=== PATIENT | male | born 1960 | race African-American/Black ===

== ENCOUNTER 2016-07-18 13:23 | Emergency (ER) | payer OTHER ==
[2016-07-18 13:29] VITALS: BP 126/69; PULSE 119; TEMP 98.1; BMI 33.4
--- NOTE | 2016-07-18 14:57 | PDOC ---
*Physical Exam - Vital Signs Last Vital Signs Temp Pulse Resp BP Pulse Ox 98.1 F 119 H 20 126/69 95 07/18/16 13:25 07/18/16 13:25 07/18/16 13:25 07/18/16 13:25 07/18/16 13:25 Medical Decision Making - Medical Decision Making 07/18/16 14:56 Called to bedside to evaluate pt for multiple skin abscesses. He has one to the mons pubis, one to the L inner thigh, both can be I&D'd. Also noted to have small chronic abscess to L buttock that appears chronic. Will defer, as it is not indurated and not tense or tender. *DC/Admit/Observation/Transfer Diagnosis at time of Disposition: Furuncle of buttock, Furuncle of groin - Discharge Dispostion Disposition: HOME Condition at time of disposition: Stable - Prescriptions Prescriptions: Clindamycin [Cleocin -] 300 mg PO Q6HPO #40 capsule Ibuprofen 400 mg PO QID PRN #40 tablet PRN Reason: Pain Hydrocortisone [Preparation H] 1 applic TP QID PRN #1 tube PRN Reason: Hemorrhoids Budesonide/Formeterol Fumarate [SYMBICORT 160/4.5mcg -] 1 inh PO BID #1 inhaler - Referrals Referrals: Armando Woods MD [Staff Physician] - Nicolle Matt MD [Staff Physician] - - Patient Instructions Printed Discharge Instructions: Hemorrhoids, DI for Anal Abscess, DI for Incision and Drainage of a Skin Abscess Additional Instructions: Please keep the area of drainage clean and dry for the next 24-48 hours. As discussed, you must follow up in 2 days for a wound recheck and/or packing removal. You must establish care with a primary care doctor for continued management of your asthma, diabetes, high blood pressure, high cholesterol, bipolar disorder, and schizophrenia. Also as discussed, if you experience any fever, chills, nausea, vomiting, diarrhea, chest pain, shortness of breath, or any new or worsening symptoms, please return to the ER.
--- NOTE | 2016-07-18 15:05 | PDOC ---
History of Present Illness - General Chief Complaint: Abscess Boil Stated Complaint: LEG PAIN Time Seen by Provider: 07/18/16 14:00 - History of Present Illness Initial Comments: 07/18/16 14:54 CHIEF COMPLAINT: HISTORY OF PRESENT ILLNESS: 56 yo M with hx of HTN, NIDDM, HLD, bipolar disorder, schizophrenia, ETOH abuse presents to fast track with abscess to right groin, right buttock, and L inner thigh. Patient reports having them for "over a week" and was given Bactrim by a doctor in rehab, from which he was discharged today. Denies fever, nausea, vomiting, diarrhea, but complains of hemorrhoids and requests medication. PAST MEDICAL HISTORY: as per HPI FAMILY HISTORY: Denies SOCIAL HISTORY: Current smoker, 30 cigarettes daily. ETOH abuse. Denies illicit drug use. SURGICAL HISTORY: Denies ALLERGIES: No known drug allergies REVIEW OF SYSTEMS General/Constitutional: Denies fever or chills. Denies weakness, weight change. HEENT: Denies change in vision. Denies ear pain or discharge. Denies sore throat. Cardiovascular: Denies chest pain or shortness of breath. Respiratory: Denies cough, wheezing, or hemoptysis. Gastrointestinal: Denies nausea, vomiting, diarrhea or constipation. Denies rectal bleeding. Genitourinary: Denies dysuria, frequency, or change in urination. Musculoskeletal: Denies joint or muscle swelling or pain. Denies neck or back pain. Skin and breasts: Abscess to right groin, buttock and inner thigh. Denies rash or easy bruising. PHYSICAL EXAM General Appearance: Well-appearing, appropriately dressed. No apparent distress , no intoxication. HEENT: EOMI, PERRLA, normal ENT inspection, normal voice, TMs normal, pharynx normal. No conjunctival pallor. No photophobia, scleral icterus. Neck: Supple. Trachea midline. No tenderness, rigidity, carotid bruit, stridor , lymphadenopathy, or thyromegaly. Respiratory/Chest: Lungs CTAB. No shortness of breath, chest tenderness, respiratory distress, accessory muscle use. No crackles, rales, rhonchi, stridor , wheezing, dullness Cardiovascular: RRR. S1, S2. Gastrointestinal/Abdominal: Normal bowel sounds. Abdomen soft, non-distended. No tenderness or rebound tenderness. No organomegaly, pulsatile mass, guarding , hernia, hepatomegaly, splenomegaly. Lymphatic: No adenopathy, tenderness. Musculoskeletal/Extremities: Normal inspection. FROM of all extremities, normal capillary refill. Pelvis Stable. No CVA tenderness. No tenderness to extremities, pedal edema, swelling, erythema or deformity. Integumentary: 2 cm x 2 cm fluctuant abscess to right mons pubis. 2 cm x 2 cm chronic abscess to right buttock. 1cm x 1 cm non-fluctuant abscess to L thigh. Appropriate color, dry, warm. Neurologic: emblem fuser tender II-XII intact. Fully oriented, alert. Appropriate mood/affect. Motor strength 5/5. No appreciable EOM palsy, facial droop or sensory deficit. Past History - Past Medical History Allergies/Adverse Reactions: Allergies Allergy/AdvReac Type Severity Reaction Status Date / Time No Known Drug Allergies Allergy Verified 07/18/16 13:29 Home Medications: Ambulatory Orders Trazodone HCl 100 mg PO HS #30 tablet 08/06/15 Quetiapine Fumarate [Seroquel] 200 tab PO BID #60 tablet 08/11/15 Fluticasone Prop 0.05% Nasal [Flonase -] 1 spray NS BID #1 spray 09/02/15 Hydrochlorothiazide [Hctz -] 25 mg PO DAILY #30 tablet 09/02/15 Folic Acid - 1 mg PO DAILY 07/13/16 Gabapentin [Neurontin -] 300 mg PO TID 07/13/16 Metformin HCl [Glucophage -] 1,000 mg PO BID 07/13/16 Polyethylene Glycol 3350 [Purelax] 17 gm PO DAILY 07/13/16 Triamcinolone Acet 0.1% Cream [Aristocort] 80 gm TP DAILY 07/13/16 Gabapentin 300 mg PO TID #90 capsule 07/14/16 Quetiapine Fumarate [Seroquel -] 200 mg PO BID #60 tab 07/14/16 Trazodone HCl [Desyrel -] 100 mg PO HS #30 tablet 07/14/16 Amlodipine Besylate [Norvasc -] 10 mg PO DAILY #30 tablet 07/18/16 Aspirin [ASA -] 81 mg PO DAILY #30 tab.chew 07/18/16 Budesonide/Formeterol Fumarate [SYMBICORT 160/4.5mcg -] 1 inh PO BID #1 inhaler 07/18/16 Clindamycin [Cleocin -] 300 mg PO Q6HPO #40 capsule 07/18/16 Docusate Sodium [Colace -] 100 mg PO TID #30 tab 07/18/16 Hydrocortisone [Preparation H] 1 applic TP QID PRN #1 tube 07/18/16 Ibuprofen 400 mg PO QID PRN #40 tablet 07/18/16 Lisinopril [Prinivil] 10 mg PO DAILY #30 tab 07/18/16 Metformin HCl [Glucophage -] 500 mg PO BID@0700,1630 #60 tablet 07/18/16 Rosuvastatin Calcium [Crestor] 20 mg PO HS #30 tab 07/18/16 Sulfamethoxazole/Trimethoprim [Bactrim DS -] 1 each PO BID #10 tablet 07/18/16 Anemia: No Asthma: Yes (MDI) Cancer: No Cardiac Disorders: No CVA: No COPD: No CHF: No Dementia: No Diabetes: Yes (NIDDM) GI Disorders: No (acid reflux) Disorders: No HTN: Yes (ON MED) Hypercholesterolemia: Yes Kidney Stones: No Liver Disease: No Suicide Attempt (Hx): No (DENIES "ONLY WITH THE LIQUOR BOTTLE".) Seizures: Yes (alcohol related-last episode was in 12/2015) Thyroid Disease: No - Surgical History Abdominal Surgery: No Appendectomy: Yes (at age 13) Cardiac Surgery: No Cholecystectomy: No Lung Surgery: No Neurologic Surgery: No Orthopedic Surgery: Yes - Reproductive History Testicular Surgery: No - Psycho/Social/Smoking Cessation Hx Anxiety: Yes Suicidal Ideation: No Smoking History: Current every day smoker Have you smoked in the past 12 months: Yes Number of Cigarettes Smoked Daily: 30 Cigars Per Day: 0 Information on smoking cessation initiated: No 'Breaking Loose' booklet given: 07/13/16 Hx Alcohol Use: Yes (daily) Drug/Substance Use Hx: No Substance Use Type: Alcohol Hx Substance Use Treatment: Yes ([facility]) *Physical Exam - Vital Signs Last Vital Signs Temp Pulse Resp BP Pulse Ox 98.1 F 119 H 20 126/69 95 07/18/16 13:25 07/18/16 13:25 07/18/16 13:25 07/18/16 13:25 07/18/16 13:25 ED Treatment Course - RADIOLOGY Radiology Studies Ordered: Category Date Time Status PELVIS CT WITHOUT CONTRAST [CT] Stat CT Scan 07/18/16 14:39 Ordered Medical Decision Making - Medical Decision Making 07/18/16 15:05 56 yo M with hx of HTN, NIDDM, HLD, bipolar disorder, schizophrenia, ETOH abuse presents to fast track with abscess to right groin, right buttock, and right inner thigh. -I&D of abscess to right mons pubis. (see procedure note). -Needle aspiration to R inner thigh, no drainage appreciated. Other abscesses with no fluctuance. External hemorrhoids. Preparation H. *DC/Admit/Observation/Transfer Diagnosis at time of Disposition: Furuncle of buttock, Furuncle of groin - Discharge Dispostion Disposition: HOME Condition at time of disposition: Stable Admit: No - Prescriptions Prescriptions: Clindamycin [Cleocin -] 300 mg PO Q6HPO #40 capsule Ibuprofen 400 mg PO QID PRN #40 tablet PRN Reason: Pain Hydrocortisone [Preparation H] 1 applic TP QID PRN #1 tube PRN Reason: Hemorrhoids Budesonide/Formeterol Fumarate [SYMBICORT 160/4.5mcg -] 1 inh PO BID #1 inhaler - Referrals Referrals: Armando Woods MD [Staff Physician] - Nicolle Matt MD [Staff Physician] - - Patient Instructions Printed Discharge Instructions: DI for Incision and Drainage of a Skin Abscess , DI for Anal Abscess, Hemorrhoids Additional Instructions: Please keep the area of drainage clean and dry for the next 24-48 hours. As discussed, you must follow up in 2 days for a wound recheck and/or packing removal. You must establish care with a primary care doctor for continued management of your asthma, diabetes, high blood pressure, high cholesterol, bipolar disorder, and schizophrenia. Also as discussed, if you experience any fever, chills, nausea, vomiting, diarrhea, chest pain, shortness of breath, or any new or worsening symptoms, please return to the ER.
[2016-07-18] MEDS ORDERED: ALBUTEROL SO4 2.5/IPRATROPIUM 0.5 INH SOL 3 ML VIAL.NEB. NEB ONE ×2 (15:38→15:41)
== END 2016-07-18 16:06 | disposition home or self-care (01) ==
LOC: JERFT 13:23 → JER 13:23 → JERFT 16:06
PROC: 0H9AXZZ Drainage of Inguinal Skin, External Approach (ICD-10-PCS; principal; 2016-07-18)
PROC: 0H9JXZZ Drainage of Left Upper Leg Skin, External Approach (ICD-10-PCS; 2016-07-18)
PROC: 3E0F7GC Introduction of Other Therapeutic Substance into Respiratory Tract, Via Natural or Artificial Opening (ICD-10-PCS; 2016-07-18)
DX: L02.224 Furuncle of groin (principal); L02.32 Furuncle of buttock; L02.426 Furuncle of left lower limb; I10 Essential (primary) hypertension; E11.9 Type 2 diabetes mellitus without complications; E78.5 Hyperlipidemia, unspecified; F31.9 Bipolar disorder, unspecified; F20.9 Schizophrenia, unspecified; F10.10 Alcohol abuse, uncomplicated; F17.210 Nicotine dependence, cigarettes, uncomplicated; J45.909 Unspecified asthma, uncomplicated; K21.9 Gastro-esophageal reflux disease without esophagitis; Z86.69 Personal history of other diseases of the nervous system and sense organs; K64.4 Residual hemorrhoidal skin tags
CPT/HCPCS: 72192-TC; 87070; 87205; 99281-25

== ENCOUNTER 2016-07-19 08:19 | Inpatient (IN) | payer OTHER ==
[2016-07-19 12:42] VITALS: BMI 34.9
--- NOTE | 2016-07-19 13:18 | HP ---
RENNY FREED Rehab Assess/Revision - Vital signs Vital Signs: Vital Signs Period Temp Pulse Resp BP Sys/Fleming Pulse Ox Last 24 Hr 96 F 100 18 140/86
--- NOTE | 2016-07-19 13:47 | HP ---
RENNY FREED Rehab Assess/Revision - Admission History Admitted to Rehab from: [facility] [place] Date of Admission to Rehab: 07/19/16 - Vital signs Vital Signs: Vital Signs Period Temp Pulse Resp BP Sys/Fleming Pulse Ox Last 24 Hr 96 F 100 18 140/86 - Findings Detox History & Physical reviewed: Yes Concur with findings: Yes Comments/Additional Findings: for rehab as protocol,patient was admitted to [facility] detox from 07/13/16 to. 07/18/16
[2016-07-19] MEDS ORDERED: LOPERAMIDE HCL 2 MG CAPSULE PO PRN (13:48)
[2016-07-19] MEDS ORDERED: MAGNESIUM CITRATE 300 ML BOTTLE PO PRN (13:48)
[2016-07-19] MEDS ORDERED: MAGNESIUM HYDROX 2400MG/30ML ORAL SUSPENSION 30 ML CUP PO PRN (13:48)
[2016-07-19] MEDS ORDERED: P-EPHED 60MG/TRIPROLIDI 2.5MG TABLET PO PRN (13:48)
[2016-07-19] MEDS ORDERED: hydrOXYzine PAMOATE 50 MG CAPSULE (FP) PO PRN (13:48)
--- NOTE | 2016-07-19 15:35 | HP ---
Psychiatrist Admission - Data Date of interview: 07/19/16 Admission source: [facility] Identifying data: This is one of the several inpatient rehabilitation admissions for this 56 year old single unemployed and domiciled black male, residing with his c/l and his 3 year old daughter, supported by SSI/SSD. Medical History: Obesity, DM, HTN and right prosthetic eye (congenital retinopathy) since age 16, history of appendectomy and cervical surgery in 2006. Furuncle of groin, Smokes cigarettes 1,5 PPD. Psychiatric History: Patient carries a diagnosis of Schizoaffective disorder, several psychiatric hospitalizations at [facility]. Non-compliant with medications and aftercare, reports most of the time he obtains his medications visiting ERs, stated he currently on Seroquel 200 po BID and Trazodone 100 mg po hs. Physical/Sexual Abuse/Trauma History: Denies history of sexual, physical and verbal abuse. Vital Signs: Vital Signs - 24 hr 07/19/16 12:40 Temperature 96 F L Pulse Rate 100 H Respiratory 18 Rate Blood Pressure 140/86 Allergies/Adverse Reactions: Allergies Allergy/AdvReac Type Severity Reaction Status Date / Time No Known Drug Allergies Allergy Verified 07/19/16 13:23 Date of last physical exam: 07/14/16 Concur with the findings of this exam: Yes - Substance Abuse/Tx History Hx Alcohol Use: Yes Hx Substance Use: Yes Substance Use Type: Alcohol (drinks 2 cases of beer, wine, liquor.) Hx Substance Use Treatment: Yes - Admission Criteria Previous failed treatment: Yes Poor recovery environment: Yes Comorbidities: Yes Lacks judgement: Yes Mental Status Exam - Mental Status Exam Alert and Oriented to: Time, Place, Person Cognitive Function: Good Patient Appearance: Well Groomed Mood: Hopeful Affect: Appropriate, Mood Congruent Patient Behavior: Appropriate, Cooperative Speech Pattern: Clear, Appropriate Voice Loudness: Normal Thought Process: Goal Oriented Thought Disorder: Not Present Hallucinations: Denies Suicidal Ideation: Denies Homicidal Ideation: Denies Insight/Judgement: Fair Sleep: Fair Appetite: Good Muscle strength/Tone: Normal Gait/Station: Normal Psychiatric Findings - Problem List ([place] 1, 2,3) (1) Furuncle of groin Current Visit: No Status: Acute (2) Nicotine dependence Current Visit: No Status: Acute Qualifiers: Nicotine product type: cigarettes Substance use status: in withdrawal Qualified Code(s): F17.213 - Nicotine dependence, cigarettes, with withdrawal (3) Schizoaffective disorder Current Visit: No Status: Chronic Qualifiers: Schizoaffective disorder type: depressive Qualified Code(s): F25.1 - Schizoaffective disorder, depressive type - Initial Treatment Plan Initial Treatment Plan: will continue his current medications, monitor progress as needed.
[2016-07-19] MEDS: NICOTINE 21 MG/24 HOURS TOPICAL PATCH TD SCH (15:37)
[2016-07-19] MEDS: IBUPROFEN 400 MG TABLET (FP) PO PRN (15:37)
[2016-07-19] MEDS: DOCUSATE SODIUM 100 MG CAPSULE (FP) PO SCH ×2 (15:37→21:29)
[2016-07-19] MEDS: GABAPENTIN 300 MG CAPSULE (FP) PO SCH ×2 (15:37→21:29)
[2016-07-19] MEDS: metFORMIN HCL 500 MG TABLET (FP) PO SCH (17:11)
[2016-07-19] MEDS: CLINDAMYCIN HCL 150 MG CAPSULE (FP) PO SCH ×2 (17:12→23:00)
[2016-07-19] MEDS: ACETAMINOPHEN 325 MG TABLET (FP) PO PRN (20:35)
[2016-07-19] MEDS: ROSUVASTATIN CA 20 MG TABLET (FP) PO SCH (21:29)
[2016-07-19] MEDS: THIAMINE HCL 100 MG TABLET (FP) PO SCH (21:29)
[2016-07-19] MEDS: traZODone HCL 100 MG TABLET (FP) PO SCH (21:31)
[2016-07-19] MEDS: QUEtiapine FUMARATE 100 MG TABLET (FP) PO SCH (21:32)
[2016-07-19] MEDS: FLUTICASONE PROP 0.05% 16 GM NASAL SPRAY NS SCH (21:33)
[2016-07-19] MEDS: BUDESONIDE/FORMETEROL FUMARATE 160/4.5 mcg INHALER IH SCH (22:11)
[2016-07-20] MEDS: ACETAMINOPHEN 325 MG TABLET (FP) PO PRN ×3 (03:43→23:09)
[2016-07-20] MEDS: MENTHOL/PHENOL 1 EACH UD MM PRN ×2 (03:45→23:10)
[2016-07-20] MEDS: CLINDAMYCIN HCL 150 MG CAPSULE (FP) PO SCH ×4 (06:19→23:54)
[2016-07-20] MEDS: GABAPENTIN 300 MG CAPSULE (FP) PO SCH ×3 (06:19→21:34)
[2016-07-20] MEDS: DOCUSATE SODIUM 100 MG CAPSULE (FP) PO SCH ×3 (06:19→21:34)
[2016-07-20] MEDS: metFORMIN HCL 500 MG TABLET (FP) PO SCH ×2 (06:19→17:05)
[2016-07-20] MEDS: amLODIPine BESYLATE 10 MG TABLET (FP) PO SCH (09:05)
[2016-07-20] MEDS: ASPIRIN 81 MG CHEWABLE TABLETS PO SCH (09:05)
[2016-07-20] MEDS: FLUTICASONE PROP 0.05% 16 GM NASAL SPRAY NS SCH ×2 (09:08→21:35)
[2016-07-20] MEDS: PRENATAL VITAMINS W/ FOLIC ACID TABLET (FP) PO SCH (09:09)
[2016-07-20] MEDS: BUDESONIDE/FORMETEROL FUMARATE 160/4.5 mcg INHALER IH SCH ×2 (09:10→21:34)
[2016-07-20] MEDS: QUEtiapine FUMARATE 100 MG TABLET (FP) PO SCH ×2 (09:15→21:34)
[2016-07-20] MEDS: NICOTINE 21 MG/24 HOURS TOPICAL PATCH TD SCH (09:17)
[2016-07-20] MEDS: LISINOPRIL 10 MG TABLET (FP) PO SCH (09:49)
[2016-07-20] MEDS ORDERED: TRIAMCINOLONE ACET 0.1% TP SCH (10:00)
[2016-07-20] MEDS ORDERED: PNEUMOC 13-VAL CONJ-DIP CRM/PF 0.5 ML DISP.SYRIN IM ONE (12:00)
[2016-07-20] MEDS: TRIAMCINOLONE ACET 0.1% TP SCH (21:36)
[2016-07-20] MEDS: THIAMINE HCL 100 MG TABLET (FP) PO SCH (21:36)
[2016-07-20] MEDS: HYDROCORTISONE 2.5% TOPICAL CREAM 30 GM TUBE TP SCH (21:37)
[2016-07-20] MEDS: traZODone HCL 100 MG TABLET (FP) PO SCH (21:38)
[2016-07-20] MEDS: ROSUVASTATIN CA 20 MG TABLET (FP) PO SCH (21:38)
[2016-07-21] MEDS: GABAPENTIN 300 MG CAPSULE (FP) PO SCH ×3 (06:34→21:37)
[2016-07-21] MEDS: metFORMIN HCL 500 MG TABLET (FP) PO SCH ×2 (06:34→17:07)
[2016-07-21] MEDS: DOCUSATE SODIUM 100 MG CAPSULE (FP) PO SCH ×3 (06:35→21:36)
[2016-07-21] MEDS: CLINDAMYCIN HCL 150 MG CAPSULE (FP) PO SCH ×4 (06:35→23:23)
[2016-07-21] MEDS: BUDESONIDE/FORMETEROL FUMARATE 160/4.5 mcg INHALER IH SCH ×2 (09:06→21:36)
[2016-07-21] MEDS: TRIAMCINOLONE ACET 0.1% TP SCH ×2 (09:06→21:36)
[2016-07-21] MEDS: ASPIRIN 81 MG CHEWABLE TABLETS PO SCH (09:06)
[2016-07-21] MEDS: PRENATAL VITAMINS W/ FOLIC ACID TABLET (FP) PO SCH (09:06)
[2016-07-21] MEDS: amLODIPine BESYLATE 10 MG TABLET (FP) PO SCH (09:06)
[2016-07-21] MEDS: QUEtiapine FUMARATE 100 MG TABLET (FP) PO SCH ×2 (09:06→21:36)
[2016-07-21] MEDS: LISINOPRIL 10 MG TABLET (FP) PO SCH (09:07)
[2016-07-21] MEDS: FLUTICASONE PROP 0.05% 16 GM NASAL SPRAY NS SCH ×2 (09:07→21:35)
[2016-07-21] MEDS: NICOTINE 21 MG/24 HOURS TOPICAL PATCH TD SCH (09:09)
[2016-07-21] MEDS: HYDROCORTISONE 2.5% TOPICAL CREAM 30 GM TUBE TP SCH ×2 (09:10→21:36)
[2016-07-21] MEDS: ACETAMINOPHEN 325 MG TABLET (FP) PO PRN (14:22)
[2016-07-21] MEDS: ROSUVASTATIN CA 20 MG TABLET (FP) PO SCH (21:36)
[2016-07-21] MEDS: THIAMINE HCL 100 MG TABLET (FP) PO SCH (21:36)
[2016-07-21] MEDS: BACITRACIN 0.9 GM PACKET TP SCH (21:37)
[2016-07-21] MEDS: traZODone HCL 100 MG TABLET (FP) PO SCH (21:37)
[2016-07-22] MEDS: metFORMIN HCL 500 MG TABLET (FP) PO SCH ×2 (06:17→17:04)
[2016-07-22] MEDS: DOCUSATE SODIUM 100 MG CAPSULE (FP) PO SCH ×3 (06:17→21:43)
[2016-07-22] MEDS: CLINDAMYCIN HCL 150 MG CAPSULE (FP) PO SCH ×4 (06:17→23:02)
[2016-07-22] MEDS: GABAPENTIN 300 MG CAPSULE (FP) PO SCH ×3 (06:17→21:43)
[2016-07-22] MEDS: ASPIRIN 81 MG CHEWABLE TABLETS PO SCH (09:59)
[2016-07-22] MEDS: PRENATAL VITAMINS W/ FOLIC ACID TABLET (FP) PO SCH (09:59)
[2016-07-22] MEDS: amLODIPine BESYLATE 10 MG TABLET (FP) PO SCH (09:59)
[2016-07-22] MEDS: LISINOPRIL 10 MG TABLET (FP) PO SCH (09:59)
[2016-07-22] MEDS: QUEtiapine FUMARATE 100 MG TABLET (FP) PO SCH ×2 (09:59→21:43)
[2016-07-22] MEDS: BUDESONIDE/FORMETEROL FUMARATE 160/4.5 mcg INHALER IH SCH ×2 (09:59→21:42)
[2016-07-22] MEDS: HYDROCORTISONE 2.5% TOPICAL CREAM 30 GM TUBE TP SCH ×2 (09:59→21:42)
[2016-07-22] MEDS: TRIAMCINOLONE ACET 0.1% TP SCH ×2 (10:01→21:43)
[2016-07-22] MEDS: FLUTICASONE PROP 0.05% 16 GM NASAL SPRAY NS SCH ×2 (10:02→21:42)
[2016-07-22] MEDS: NICOTINE 21 MG/24 HOURS TOPICAL PATCH TD SCH (10:02)
[2016-07-22] MEDS: BACITRACIN 0.9 GM PACKET TP SCH ×2 (10:05→21:42)
[2016-07-22] MEDS: ROSUVASTATIN CA 20 MG TABLET (FP) PO SCH (21:43)
[2016-07-22] MEDS: THIAMINE HCL 100 MG TABLET (FP) PO SCH (21:43)
[2016-07-22] MEDS: traZODone HCL 100 MG TABLET (FP) PO SCH (21:43)
[2016-07-22] MEDS: MAG HYDROX/AL HYDROX/SIMETH 30 ML UNIT-DOSE CUP PO PRN (23:14)
[2016-07-23] MEDS: CLINDAMYCIN HCL 150 MG CAPSULE (FP) PO SCH ×4 (06:26→23:27)
[2016-07-23] MEDS: metFORMIN HCL 500 MG TABLET (FP) PO SCH ×2 (06:26→17:04)
[2016-07-23] MEDS: GABAPENTIN 300 MG CAPSULE (FP) PO SCH ×3 (06:26→21:37)
[2016-07-23] MEDS: DOCUSATE SODIUM 100 MG CAPSULE (FP) PO SCH ×3 (06:26→21:37)
[2016-07-23] MEDS: BACITRACIN 0.9 GM PACKET TP SCH ×2 (09:54→21:37)
[2016-07-23] MEDS: BUDESONIDE/FORMETEROL FUMARATE 160/4.5 mcg INHALER IH SCH ×2 (09:54→21:36)
[2016-07-23] MEDS: QUEtiapine FUMARATE 100 MG TABLET (FP) PO SCH ×2 (09:55→21:37)
[2016-07-23] MEDS: ASPIRIN 81 MG CHEWABLE TABLETS PO SCH (09:55)
[2016-07-23] MEDS: LISINOPRIL 10 MG TABLET (FP) PO SCH (09:55)
[2016-07-23] MEDS: HYDROCORTISONE 2.5% TOPICAL CREAM 30 GM TUBE TP SCH ×2 (09:55→21:36)
[2016-07-23] MEDS: amLODIPine BESYLATE 10 MG TABLET (FP) PO SCH (09:55)
[2016-07-23] MEDS: FLUTICASONE PROP 0.05% 16 GM NASAL SPRAY NS SCH ×2 (09:56→21:36)
[2016-07-23] MEDS: PRENATAL VITAMINS W/ FOLIC ACID TABLET (FP) PO SCH (09:56)
[2016-07-23] MEDS: NICOTINE 21 MG/24 HOURS TOPICAL PATCH TD SCH (09:57)
[2016-07-23] MEDS: TRIAMCINOLONE ACET 0.1% TP SCH ×2 (09:58→21:36)
[2016-07-23] MEDS: guaiFENesin/D-METHORPHAN HB 10 ML UNIT-DOSE CUPS PO PRN ×2 (12:00→21:39)
[2016-07-23] MEDS ORDERED: ALBUTEROL SO4 2.5/IPRATROPIUM 0.5 INH SOL 3 ML VIAL.NEB. NEB PRN (15:51)
[2016-07-23] MEDS: ALBUTEROL SO4 6.7 GM HFA INHALER IH PRN (16:14)
[2016-07-23] MEDS ORDERED: INSULIN SLIDING SCALE (NOVOLOG) 1 VIAL SQ SCH (16:30)
[2016-07-23] MEDS: INSULIN SLIDING SCALE (NOVOLOG) 1 VIAL SQ SCH (17:04)
[2016-07-23] MEDS ORDERED: INSULIN (NOVOLOG) ASPART 100 UNITS/ML 10ML VIAL ONE (17:05)
[2016-07-23] MEDS: traZODone HCL 100 MG TABLET (FP) PO SCH (21:37)
[2016-07-23] MEDS: THIAMINE HCL 100 MG TABLET (FP) PO SCH (21:37)
[2016-07-23] MEDS: ROSUVASTATIN CA 20 MG TABLET (FP) PO SCH (21:38)
[2016-07-24] MEDS: DOCUSATE SODIUM 100 MG CAPSULE (FP) PO SCH ×3 (05:55→21:02)
[2016-07-24] MEDS: GABAPENTIN 300 MG CAPSULE (FP) PO SCH ×3 (05:55→21:02)
[2016-07-24] MEDS: CLINDAMYCIN HCL 150 MG CAPSULE (FP) PO SCH ×4 (05:55→23:19)
[2016-07-24] MEDS: INSULIN SLIDING SCALE (NOVOLOG) 1 VIAL SQ SCH ×2 (06:02→16:30)
[2016-07-24] MEDS: metFORMIN HCL 500 MG TABLET (FP) PO SCH ×2 (06:38→16:31)
[2016-07-24] MEDS: BUDESONIDE/FORMETEROL FUMARATE 160/4.5 mcg INHALER IH SCH ×2 (09:53→21:06)
[2016-07-24] MEDS: LISINOPRIL 10 MG TABLET (FP) PO SCH (09:54)
[2016-07-24] MEDS: PRENATAL VITAMINS W/ FOLIC ACID TABLET (FP) PO SCH (09:54)
[2016-07-24] MEDS: amLODIPine BESYLATE 10 MG TABLET (FP) PO SCH (09:54)
[2016-07-24] MEDS: QUEtiapine FUMARATE 100 MG TABLET (FP) PO SCH ×2 (09:54→21:02)
[2016-07-24] MEDS: ASPIRIN 81 MG CHEWABLE TABLETS PO SCH (09:54)
[2016-07-24] MEDS: BACITRACIN 0.9 GM PACKET TP SCH ×2 (09:54→21:02)
[2016-07-24] MEDS: FLUTICASONE PROP 0.05% 16 GM NASAL SPRAY NS SCH ×2 (09:56→21:06)
[2016-07-24] MEDS: HYDROCORTISONE 2.5% TOPICAL CREAM 30 GM TUBE TP SCH ×2 (09:57→21:04)
[2016-07-24] MEDS: NICOTINE 21 MG/24 HOURS TOPICAL PATCH TD SCH (09:58)
[2016-07-24] MEDS: TRIAMCINOLONE ACET 0.1% TP SCH ×2 (09:59→21:07)
[2016-07-24] MEDS: guaiFENesin/D-METHORPHAN HB 10 ML UNIT-DOSE CUPS PO PRN (13:59)
[2016-07-24] MEDS: traZODone HCL 100 MG TABLET (FP) PO SCH (21:02)
[2016-07-24] MEDS: ROSUVASTATIN CA 20 MG TABLET (FP) PO SCH (21:02)
[2016-07-24] MEDS: THIAMINE HCL 100 MG TABLET (FP) PO SCH (21:07)
[2016-07-25] MEDS: DOCUSATE SODIUM 100 MG CAPSULE (FP) PO SCH ×3 (06:39→21:48)
[2016-07-25] MEDS: metFORMIN HCL 500 MG TABLET (FP) PO SCH ×2 (06:39→16:32)
[2016-07-25] MEDS: CLINDAMYCIN HCL 150 MG CAPSULE (FP) PO SCH ×4 (06:39→23:39)
[2016-07-25] MEDS: GABAPENTIN 300 MG CAPSULE (FP) PO SCH ×3 (06:39→21:48)
[2016-07-25] MEDS: INSULIN SLIDING SCALE (NOVOLOG) 1 VIAL SQ SCH ×2 (06:40→16:32)
[2016-07-25] MEDS: BUDESONIDE/FORMETEROL FUMARATE 160/4.5 mcg INHALER IH SCH ×2 (09:51→21:49)
[2016-07-25] MEDS: BACITRACIN 0.9 GM PACKET TP SCH ×2 (09:52→21:48)
[2016-07-25] MEDS: amLODIPine BESYLATE 10 MG TABLET (FP) PO SCH (09:52)
[2016-07-25] MEDS: PRENATAL VITAMINS W/ FOLIC ACID TABLET (FP) PO SCH (09:52)
[2016-07-25] MEDS: ASPIRIN 81 MG CHEWABLE TABLETS PO SCH (09:52)
[2016-07-25] MEDS: QUEtiapine FUMARATE 100 MG TABLET (FP) PO SCH ×2 (09:52→21:48)
[2016-07-25] MEDS: LISINOPRIL 10 MG TABLET (FP) PO SCH (09:52)
[2016-07-25] MEDS: NICOTINE 21 MG/24 HOURS TOPICAL PATCH TD SCH (09:53)
[2016-07-25] MEDS: FLUTICASONE PROP 0.05% 16 GM NASAL SPRAY NS SCH ×2 (09:53→21:49)
[2016-07-25] MEDS: HYDROCORTISONE 2.5% TOPICAL CREAM 30 GM TUBE TP SCH ×2 (09:53→22:00)
[2016-07-25] MEDS: TRIAMCINOLONE ACET 0.1% TP SCH ×2 (09:54→21:50)
[2016-07-25] MEDS: ACETAMINOPHEN 325 MG TABLET (FP) PO PRN (11:07)
[2016-07-25] MEDS: guaiFENesin/D-METHORPHAN HB 10 ML UNIT-DOSE CUPS PO PRN (11:07)
[2016-07-25] MEDS ORDERED: INSULIN (NOVOLOG) ASPART 100 UNITS/ML 10ML VIAL ONE (16:36)
[2016-07-25] MEDS: ROSUVASTATIN CA 20 MG TABLET (FP) PO SCH (21:48)
[2016-07-25] MEDS: THIAMINE HCL 100 MG TABLET (FP) PO SCH (21:48)
[2016-07-25] MEDS: traZODone HCL 100 MG TABLET (FP) PO SCH (21:48)
[2016-07-26] MEDS: CLINDAMYCIN HCL 150 MG CAPSULE (FP) PO SCH ×3 (06:23→17:03)
[2016-07-26] MEDS: metFORMIN HCL 500 MG TABLET (FP) PO SCH ×2 (06:23→17:03)
[2016-07-26] MEDS: INSULIN SLIDING SCALE (NOVOLOG) 1 VIAL SQ SCH ×2 (06:23→17:00)
[2016-07-26] MEDS: DOCUSATE SODIUM 100 MG CAPSULE (FP) PO SCH ×3 (06:23→21:50)
[2016-07-26] MEDS: GABAPENTIN 300 MG CAPSULE (FP) PO SCH ×3 (06:23→21:51)
[2016-07-26] MEDS: BACITRACIN 0.9 GM PACKET TP SCH ×2 (10:25→21:50)
[2016-07-26] MEDS: amLODIPine BESYLATE 10 MG TABLET (FP) PO SCH (10:25)
[2016-07-26] MEDS: BUDESONIDE/FORMETEROL FUMARATE 160/4.5 mcg INHALER IH SCH ×2 (10:25→21:50)
[2016-07-26] MEDS: PRENATAL VITAMINS W/ FOLIC ACID TABLET (FP) PO SCH (10:25)
[2016-07-26] MEDS: ASPIRIN 81 MG CHEWABLE TABLETS PO SCH (10:25)
[2016-07-26] MEDS: QUEtiapine FUMARATE 100 MG TABLET (FP) PO SCH ×2 (10:25→21:51)
[2016-07-26] MEDS: LISINOPRIL 10 MG TABLET (FP) PO SCH (10:25)
[2016-07-26] MEDS: HYDROCORTISONE 2.5% TOPICAL CREAM 30 GM TUBE TP SCH ×2 (10:26→21:54)
[2016-07-26] MEDS: FLUTICASONE PROP 0.05% 16 GM NASAL SPRAY NS SCH ×2 (10:27→21:52)
[2016-07-26] MEDS: NICOTINE 21 MG/24 HOURS TOPICAL PATCH TD SCH (10:27)
[2016-07-26] MEDS: TRIAMCINOLONE ACET 0.1% TP SCH (10:28)
[2016-07-26] MEDS ORDERED: INSULIN (NOVOLOG) ASPART 100 UNITS/ML 10ML VIAL ONE (17:03)
[2016-07-26] MEDS: THIAMINE HCL 100 MG TABLET (FP) PO SCH (21:51)
[2016-07-26] MEDS: ROSUVASTATIN CA 20 MG TABLET (FP) PO SCH (21:51)
[2016-07-26] MEDS: traZODone HCL 100 MG TABLET (FP) PO SCH (21:51)
[2016-07-26] MEDS: TRIAMCINOLONE ACET 0.1% CREAM 15 GM TUBE TP SCH (21:53)
[2016-07-27] MEDS: GABAPENTIN 300 MG CAPSULE (FP) PO SCH ×3 (05:48→21:43)
[2016-07-27] MEDS: DOCUSATE SODIUM 100 MG CAPSULE (FP) PO SCH ×3 (05:48→21:40)
[2016-07-27] MEDS: INSULIN SLIDING SCALE (NOVOLOG) 1 VIAL SQ SCH ×2 (06:28→16:47)
[2016-07-27] MEDS: metFORMIN HCL 500 MG TABLET (FP) PO SCH ×2 (06:29→16:45)
[2016-07-27] MEDS: BUDESONIDE/FORMETEROL FUMARATE 160/4.5 mcg INHALER IH SCH ×2 (10:18→21:45)
[2016-07-27] MEDS: PRENATAL VITAMINS W/ FOLIC ACID TABLET (FP) PO SCH (10:18)
[2016-07-27] MEDS: amLODIPine BESYLATE 10 MG TABLET (FP) PO SCH (10:19)
[2016-07-27] MEDS: BACITRACIN 0.9 GM PACKET TP SCH ×2 (10:19→21:39)
[2016-07-27] MEDS: ASPIRIN 81 MG CHEWABLE TABLETS PO SCH (10:19)
[2016-07-27] MEDS: QUEtiapine FUMARATE 100 MG TABLET (FP) PO SCH ×2 (10:19→21:40)
[2016-07-27] MEDS: TRIAMCINOLONE ACET 0.1% CREAM 15 GM TUBE TP SCH ×2 (10:20→21:42)
[2016-07-27] MEDS: FLUTICASONE PROP 0.05% 16 GM NASAL SPRAY NS SCH ×2 (10:21→21:46)
[2016-07-27] MEDS: LISINOPRIL 10 MG TABLET (FP) PO SCH (10:22)
[2016-07-27] MEDS: NICOTINE 21 MG/24 HOURS TOPICAL PATCH TD SCH (10:22)
[2016-07-27] MEDS: HYDROCORTISONE 2.5% TOPICAL CREAM 30 GM TUBE TP SCH ×2 (10:23→21:45)
[2016-07-27] MEDS: ALBUTEROL SO4 6.7 GM HFA INHALER IH PRN (11:52)
[2016-07-27] MEDS ORDERED: INSULIN (NOVOLOG) ASPART 100 UNITS/ML 10ML VIAL ONE (16:51)
[2016-07-27] MEDS: traZODone HCL 100 MG TABLET (FP) PO SCH (21:40)
[2016-07-27] MEDS: THIAMINE HCL 100 MG TABLET (FP) PO SCH (21:40)
[2016-07-27] MEDS: ROSUVASTATIN CA 20 MG TABLET (FP) PO SCH (21:40)
[2016-07-28] MEDS: GABAPENTIN 300 MG CAPSULE (FP) PO SCH ×3 (06:27→21:55)
[2016-07-28] MEDS: DOCUSATE SODIUM 100 MG CAPSULE (FP) PO SCH ×3 (06:27→21:55)
[2016-07-28] MEDS: metFORMIN HCL 500 MG TABLET (FP) PO SCH ×2 (06:27→16:43)
[2016-07-28] MEDS: INSULIN SLIDING SCALE (NOVOLOG) 1 VIAL SQ SCH ×2 (06:28→16:47)
[2016-07-28] MEDS: HYDROCORTISONE 2.5% TOPICAL CREAM 30 GM TUBE TP SCH ×2 (09:45→21:56)
[2016-07-28] MEDS: BUDESONIDE/FORMETEROL FUMARATE 160/4.5 mcg INHALER IH SCH ×2 (09:46→21:56)
[2016-07-28] MEDS: QUEtiapine FUMARATE 100 MG TABLET (FP) PO SCH ×2 (09:46→21:54)
[2016-07-28] MEDS: TRIAMCINOLONE ACET 0.1% CREAM 15 GM TUBE TP SCH ×2 (09:46→21:58)
[2016-07-28] MEDS: BACITRACIN 0.9 GM PACKET TP SCH ×2 (09:46→21:54)
[2016-07-28] MEDS: FLUTICASONE PROP 0.05% 16 GM NASAL SPRAY NS SCH ×2 (09:46→21:58)
[2016-07-28] MEDS: LISINOPRIL 10 MG TABLET (FP) PO SCH (09:47)
[2016-07-28] MEDS: ASPIRIN 81 MG CHEWABLE TABLETS PO SCH (09:47)
[2016-07-28] MEDS: NICOTINE 21 MG/24 HOURS TOPICAL PATCH TD SCH (09:47)
[2016-07-28] MEDS: PRENATAL VITAMINS W/ FOLIC ACID TABLET (FP) PO SCH (09:47)
[2016-07-28] MEDS: amLODIPine BESYLATE 10 MG TABLET (FP) PO SCH (09:47)
[2016-07-28] MEDS: ALBUTEROL SO4 6.7 GM HFA INHALER IH PRN (12:57)
[2016-07-28] MEDS ORDERED: INSULIN (NOVOLOG) ASPART 100 UNITS/ML 10ML VIAL ONE (16:47)
[2016-07-28] MEDS: THIAMINE HCL 100 MG TABLET (FP) PO SCH (21:55)
[2016-07-28] MEDS: ROSUVASTATIN CA 20 MG TABLET (FP) PO SCH (21:55)
[2016-07-28] MEDS: traZODone HCL 100 MG TABLET (FP) PO SCH (22:00)
[2016-07-28] MEDS ORDERED: traZODone HCL 50 MG TABLET (FP) ONE (22:00)
[2016-07-28] MEDS: ACETAMINOPHEN 325 MG TABLET (FP) PO PRN (22:02)
[2016-07-29] MEDS: guaiFENesin/D-METHORPHAN HB 10 ML UNIT-DOSE CUPS PO PRN (03:45)
[2016-07-29] MEDS: ALBUTEROL SO4 6.7 GM HFA INHALER IH PRN (03:45)
[2016-07-29] MEDS: metFORMIN HCL 500 MG TABLET (FP) PO SCH ×2 (06:04→16:44)
[2016-07-29] MEDS: DOCUSATE SODIUM 100 MG CAPSULE (FP) PO SCH ×3 (06:04→21:48)
[2016-07-29] MEDS: GABAPENTIN 300 MG CAPSULE (FP) PO SCH ×3 (06:04→21:49)
[2016-07-29] MEDS ORDERED: INSULIN (NOVOLOG) ASPART 100 UNITS/ML 10ML VIAL ONE (06:05)
[2016-07-29] MEDS: INSULIN SLIDING SCALE (NOVOLOG) 1 VIAL SQ SCH ×2 (06:05→16:45)
[2016-07-29] MEDS: ASPIRIN 81 MG CHEWABLE TABLETS PO SCH (10:45)
[2016-07-29] MEDS: BUDESONIDE/FORMETEROL FUMARATE 160/4.5 mcg INHALER IH SCH ×2 (10:45→21:49)
[2016-07-29] MEDS: BACITRACIN 0.9 GM PACKET TP SCH ×2 (10:46→21:48)
[2016-07-29] MEDS: LISINOPRIL 10 MG TABLET (FP) PO SCH (10:46)
[2016-07-29] MEDS: amLODIPine BESYLATE 10 MG TABLET (FP) PO SCH (10:46)
[2016-07-29] MEDS: PRENATAL VITAMINS W/ FOLIC ACID TABLET (FP) PO SCH (10:46)
[2016-07-29] MEDS: HYDROCORTISONE 2.5% TOPICAL CREAM 30 GM TUBE TP SCH ×2 (10:46→21:50)
[2016-07-29] MEDS: QUEtiapine FUMARATE 100 MG TABLET (FP) PO SCH (10:46)
[2016-07-29] MEDS: TRIAMCINOLONE ACET 0.1% CREAM 15 GM TUBE TP SCH ×2 (10:46→21:50)
[2016-07-29] MEDS: FLUTICASONE PROP 0.05% 16 GM NASAL SPRAY NS SCH ×2 (10:48→21:50)
[2016-07-29] MEDS: NICOTINE 21 MG/24 HOURS TOPICAL PATCH TD SCH (10:48)
[2016-07-29] MEDS: ACETAMINOPHEN 325 MG TABLET (FP) PO PRN (13:53)
[2016-07-29] MEDS: QUEtiapine FUMARATE 200 MG TABLET PO SCH (21:48)
[2016-07-29] MEDS: ROSUVASTATIN CA 20 MG TABLET (FP) PO SCH (21:49)
[2016-07-29] MEDS: THIAMINE HCL 100 MG TABLET (FP) PO SCH (21:49)
[2016-07-29] MEDS: traZODone HCL 100 MG TABLET (FP) PO SCH (21:49)
[2016-07-30] MEDS: DOCUSATE SODIUM 100 MG CAPSULE (FP) PO SCH ×3 (06:01→21:45)
[2016-07-30] MEDS: metFORMIN HCL 500 MG TABLET (FP) PO SCH ×2 (06:01→17:07)
[2016-07-30] MEDS: GABAPENTIN 300 MG CAPSULE (FP) PO SCH ×3 (06:01→21:45)
[2016-07-30] MEDS: INSULIN SLIDING SCALE (NOVOLOG) 1 VIAL SQ SCH ×2 (06:01→17:08)
[2016-07-30] MEDS: amLODIPine BESYLATE 10 MG TABLET (FP) PO SCH (10:30)
[2016-07-30] MEDS: QUEtiapine FUMARATE 200 MG TABLET PO SCH ×2 (10:30→21:44)
[2016-07-30] MEDS: PRENATAL VITAMINS W/ FOLIC ACID TABLET (FP) PO SCH (10:30)
[2016-07-30] MEDS: ASPIRIN 81 MG CHEWABLE TABLETS PO SCH (10:30)
[2016-07-30] MEDS: LISINOPRIL 10 MG TABLET (FP) PO SCH (10:30)
[2016-07-30] MEDS: BACITRACIN 0.9 GM PACKET TP SCH ×2 (10:30→21:47)
[2016-07-30] MEDS: BUDESONIDE/FORMETEROL FUMARATE 160/4.5 mcg INHALER IH SCH ×2 (10:31→21:44)
[2016-07-30] MEDS: FLUTICASONE PROP 0.05% 16 GM NASAL SPRAY NS SCH ×2 (10:32→22:05)
[2016-07-30] MEDS: TRIAMCINOLONE ACET 0.1% CREAM 15 GM TUBE TP SCH ×2 (10:32→21:46)
[2016-07-30] MEDS: HYDROCORTISONE 2.5% TOPICAL CREAM 30 GM TUBE TP SCH ×2 (10:32→21:46)
[2016-07-30] MEDS: NICOTINE 21 MG/24 HOURS TOPICAL PATCH TD SCH (10:33)
[2016-07-30] MEDS ORDERED: INSULIN (NOVOLOG) ASPART 100 UNITS/ML 10ML VIAL ONE (17:09)
[2016-07-30] MEDS: ROSUVASTATIN CA 20 MG TABLET (FP) PO SCH (21:44)
[2016-07-30] MEDS: THIAMINE HCL 100 MG TABLET (FP) PO SCH (21:44)
[2016-07-30] MEDS: traZODone HCL 100 MG TABLET (FP) PO SCH (21:44)
[2016-07-31] MEDS: MAG HYDROX/AL HYDROX/SIMETH 30 ML UNIT-DOSE CUP PO PRN (00:49)
[2016-07-31] MEDS: metFORMIN HCL 500 MG TABLET (FP) PO SCH ×2 (06:15→16:59)
[2016-07-31] MEDS: GABAPENTIN 300 MG CAPSULE (FP) PO SCH ×3 (06:15→21:38)
[2016-07-31] MEDS: DOCUSATE SODIUM 100 MG CAPSULE (FP) PO SCH ×3 (06:15→21:38)
[2016-07-31] MEDS: INSULIN SLIDING SCALE (NOVOLOG) 1 VIAL SQ SCH ×2 (06:16→16:59)
[2016-07-31] MEDS: BUDESONIDE/FORMETEROL FUMARATE 160/4.5 mcg INHALER IH SCH ×2 (10:48→21:40)
[2016-07-31] MEDS: QUEtiapine FUMARATE 200 MG TABLET PO SCH ×2 (10:49→21:38)
[2016-07-31] MEDS: NICOTINE 21 MG/24 HOURS TOPICAL PATCH TD SCH (10:49)
[2016-07-31] MEDS: ASPIRIN 81 MG CHEWABLE TABLETS PO SCH (10:49)
[2016-07-31] MEDS: amLODIPine BESYLATE 10 MG TABLET (FP) PO SCH (10:49)
[2016-07-31] MEDS: PRENATAL VITAMINS W/ FOLIC ACID TABLET (FP) PO SCH (10:49)
[2016-07-31] MEDS: HYDROCORTISONE 2.5% TOPICAL CREAM 30 GM TUBE TP SCH ×2 (10:50→21:39)
[2016-07-31] MEDS: TRIAMCINOLONE ACET 0.1% CREAM 15 GM TUBE TP SCH ×2 (10:50→21:38)
[2016-07-31] MEDS: BACITRACIN 0.9 GM PACKET TP SCH ×2 (10:50→21:38)
[2016-07-31] MEDS: FLUTICASONE PROP 0.05% 16 GM NASAL SPRAY NS SCH ×2 (10:50→21:39)
[2016-07-31] MEDS: LISINOPRIL 10 MG TABLET (FP) PO SCH (10:56)
[2016-07-31] MEDS ORDERED: traZODone HCL 50 MG TABLET (FP) ONE (19:24)
[2016-07-31] MEDS: ROSUVASTATIN CA 20 MG TABLET (FP) PO SCH (21:38)
[2016-07-31] MEDS: THIAMINE HCL 100 MG TABLET (FP) PO SCH (21:38)
[2016-07-31] MEDS: traZODone HCL 100 MG TABLET (FP) PO SCH (21:39)
[2016-08-01] MEDS: DOCUSATE SODIUM 100 MG CAPSULE (FP) PO SCH ×3 (06:42→21:41)
[2016-08-01] MEDS: GABAPENTIN 300 MG CAPSULE (FP) PO SCH ×3 (06:42→21:41)
[2016-08-01] MEDS: metFORMIN HCL 500 MG TABLET (FP) PO SCH ×2 (06:42→16:33)
[2016-08-01] MEDS: INSULIN SLIDING SCALE (NOVOLOG) 1 VIAL SQ SCH ×2 (06:43→16:32)
[2016-08-01] MEDS: BACITRACIN 0.9 GM PACKET TP SCH ×2 (10:29→21:41)
[2016-08-01] MEDS: QUEtiapine FUMARATE 200 MG TABLET PO SCH ×2 (10:29→21:41)
[2016-08-01] MEDS: ASPIRIN 81 MG CHEWABLE TABLETS PO SCH (10:29)
[2016-08-01] MEDS: amLODIPine BESYLATE 10 MG TABLET (FP) PO SCH (10:31)
[2016-08-01] MEDS: NICOTINE 21 MG/24 HOURS TOPICAL PATCH TD SCH (10:31)
[2016-08-01] MEDS: PRENATAL VITAMINS W/ FOLIC ACID TABLET (FP) PO SCH (10:31)
[2016-08-01] MEDS: LISINOPRIL 10 MG TABLET (FP) PO SCH (10:31)
[2016-08-01] MEDS: BUDESONIDE/FORMETEROL FUMARATE 160/4.5 mcg INHALER IH SCH ×2 (10:32→21:41)
[2016-08-01] MEDS: TRIAMCINOLONE ACET 0.1% CREAM 15 GM TUBE TP SCH ×2 (10:33→21:43)
[2016-08-01] MEDS: HYDROCORTISONE 2.5% TOPICAL CREAM 30 GM TUBE TP SCH ×2 (10:33→21:43)
[2016-08-01] MEDS: FLUTICASONE PROP 0.05% 16 GM NASAL SPRAY NS SCH ×2 (10:34→21:44)
[2016-08-01] MEDS ORDERED: INSULIN (NOVOLOG) ASPART 100 UNITS/ML 10ML VIAL ONE (16:48)
[2016-08-01] MEDS: traZODone HCL 100 MG TABLET (FP) PO SCH (21:41)
[2016-08-01] MEDS: ROSUVASTATIN CA 20 MG TABLET (FP) PO SCH (21:42)
[2016-08-01] MEDS: THIAMINE HCL 100 MG TABLET (FP) PO SCH (21:44)
[2016-08-02] MEDS: GABAPENTIN 300 MG CAPSULE (FP) PO SCH ×3 (06:22→21:46)
[2016-08-02] MEDS: metFORMIN HCL 500 MG TABLET (FP) PO SCH ×2 (06:22→16:48)
[2016-08-02] MEDS: DOCUSATE SODIUM 100 MG CAPSULE (FP) PO SCH ×3 (06:22→21:46)
[2016-08-02] MEDS: INSULIN SLIDING SCALE (NOVOLOG) 1 VIAL SQ SCH ×2 (06:23→16:48)
[2016-08-02] MEDS: LISINOPRIL 10 MG TABLET (FP) PO SCH (10:38)
[2016-08-02] MEDS: ASPIRIN 81 MG CHEWABLE TABLETS PO SCH (10:38)
[2016-08-02] MEDS: PRENATAL VITAMINS W/ FOLIC ACID TABLET (FP) PO SCH (10:38)
[2016-08-02] MEDS: BACITRACIN 0.9 GM PACKET TP SCH ×2 (10:38→21:49)
[2016-08-02] MEDS: amLODIPine BESYLATE 10 MG TABLET (FP) PO SCH (10:38)
[2016-08-02] MEDS: QUEtiapine FUMARATE 200 MG TABLET PO SCH ×2 (10:38→21:46)
[2016-08-02] MEDS: NICOTINE 21 MG/24 HOURS TOPICAL PATCH TD SCH (10:39)
[2016-08-02] MEDS: BUDESONIDE/FORMETEROL FUMARATE 160/4.5 mcg INHALER IH SCH ×2 (10:39→21:46)
[2016-08-02] MEDS: FLUTICASONE PROP 0.05% 16 GM NASAL SPRAY NS SCH ×2 (10:40→21:47)
[2016-08-02] MEDS: TRIAMCINOLONE ACET 0.1% CREAM 15 GM TUBE TP SCH ×2 (10:40→21:49)
[2016-08-02] MEDS: HYDROCORTISONE 2.5% TOPICAL CREAM 30 GM TUBE TP SCH ×2 (10:40→21:48)
[2016-08-02] MEDS: guaiFENesin/D-METHORPHAN HB 10 ML UNIT-DOSE CUPS PO PRN (12:58)
[2016-08-02] MEDS ORDERED: INSULIN (NOVOLOG) ASPART 100 UNITS/ML 10ML VIAL ONE (16:48)
[2016-08-02] MEDS: traZODone HCL 100 MG TABLET (FP) PO SCH (21:45)
[2016-08-02] MEDS: THIAMINE HCL 100 MG TABLET (FP) PO SCH (21:46)
[2016-08-02] MEDS: ROSUVASTATIN CA 20 MG TABLET (FP) PO SCH (21:46)
[2016-08-03] MEDS ORDERED: INSULIN (NOVOLOG) ASPART 100 UNITS/ML 10ML VIAL ONE ×2 (05:57→17:04)
[2016-08-03] MEDS: GABAPENTIN 300 MG CAPSULE (FP) PO SCH ×3 (05:57→21:54)
[2016-08-03] MEDS: DOCUSATE SODIUM 100 MG CAPSULE (FP) PO SCH ×2 (05:57→21:56)
[2016-08-03] MEDS: metFORMIN HCL 500 MG TABLET (FP) PO SCH ×2 (06:23→17:03)
[2016-08-03] MEDS: INSULIN SLIDING SCALE (NOVOLOG) 1 VIAL SQ SCH ×2 (06:23→17:04)
[2016-08-03] MEDS: BUDESONIDE/FORMETEROL FUMARATE 160/4.5 mcg INHALER IH SCH ×2 (10:33→21:54)
[2016-08-03] MEDS: TRIAMCINOLONE ACET 0.1% CREAM 15 GM TUBE TP SCH ×2 (10:33→21:55)
[2016-08-03] MEDS: HYDROCORTISONE 2.5% TOPICAL CREAM 30 GM TUBE TP SCH ×2 (10:33→21:55)
[2016-08-03] MEDS: QUEtiapine FUMARATE 200 MG TABLET PO SCH ×2 (10:34→21:54)
[2016-08-03] MEDS: amLODIPine BESYLATE 10 MG TABLET (FP) PO SCH (10:34)
[2016-08-03] MEDS: FLUTICASONE PROP 0.05% 16 GM NASAL SPRAY NS SCH ×2 (10:34→21:55)
[2016-08-03] MEDS: PRENATAL VITAMINS W/ FOLIC ACID TABLET (FP) PO SCH (10:34)
[2016-08-03] MEDS: LISINOPRIL 10 MG TABLET (FP) PO SCH (10:34)
[2016-08-03] MEDS: BACITRACIN 0.9 GM PACKET TP SCH ×2 (10:34→21:55)
[2016-08-03] MEDS: ASPIRIN 81 MG CHEWABLE TABLETS PO SCH (10:34)
[2016-08-03] MEDS: NICOTINE 21 MG/24 HOURS TOPICAL PATCH TD SCH (10:35)
[2016-08-03] MEDS: MENTHOL/PHENOL 1 EACH UD MM PRN (14:29)
[2016-08-03] MEDS: THIAMINE HCL 100 MG TABLET (FP) PO SCH (21:54)
[2016-08-03] MEDS: traZODone HCL 100 MG TABLET (FP) PO SCH (21:54)
[2016-08-03] MEDS: ROSUVASTATIN CA 20 MG TABLET (FP) PO SCH (21:54)
[2016-08-03] MEDS: ACETAMINOPHEN 325 MG TABLET (FP) PO PRN (21:56)
[2016-08-04] MEDS: metFORMIN HCL 500 MG TABLET (FP) PO SCH ×2 (06:09→17:01)
[2016-08-04] MEDS: GABAPENTIN 300 MG CAPSULE (FP) PO SCH ×3 (06:09→21:37)
[2016-08-04] MEDS: INSULIN SLIDING SCALE (NOVOLOG) 1 VIAL SQ SCH ×2 (06:10→17:01)
[2016-08-04] MEDS: BACITRACIN 0.9 GM PACKET TP SCH ×2 (10:25→21:37)
[2016-08-04] MEDS: BUDESONIDE/FORMETEROL FUMARATE 160/4.5 mcg INHALER IH SCH ×2 (10:25→21:37)
[2016-08-04] MEDS: LISINOPRIL 10 MG TABLET (FP) PO SCH (10:25)
[2016-08-04] MEDS: PRENATAL VITAMINS W/ FOLIC ACID TABLET (FP) PO SCH (10:25)
[2016-08-04] MEDS: HYDROCORTISONE 2.5% TOPICAL CREAM 30 GM TUBE TP SCH ×2 (10:25→21:37)
[2016-08-04] MEDS: ASPIRIN 81 MG CHEWABLE TABLETS PO SCH (10:25)
[2016-08-04] MEDS: QUEtiapine FUMARATE 200 MG TABLET PO SCH ×2 (10:25→21:37)
[2016-08-04] MEDS: amLODIPine BESYLATE 10 MG TABLET (FP) PO SCH (10:25)
[2016-08-04] MEDS: FLUTICASONE PROP 0.05% 16 GM NASAL SPRAY NS SCH ×2 (10:26→21:37)
[2016-08-04] MEDS: TRIAMCINOLONE ACET 0.1% CREAM 15 GM TUBE TP SCH ×2 (10:26→21:37)
[2016-08-04] MEDS: NICOTINE 21 MG/24 HOURS TOPICAL PATCH TD SCH (10:28)
[2016-08-04] MEDS: DOCUSATE SODIUM 100 MG CAPSULE (FP) PO SCH (21:36)
[2016-08-04] MEDS: ROSUVASTATIN CA 20 MG TABLET (FP) PO SCH (21:36)
[2016-08-04] MEDS: THIAMINE HCL 100 MG TABLET (FP) PO SCH (21:36)
[2016-08-04] MEDS: traZODone HCL 100 MG TABLET (FP) PO SCH (21:36)
[2016-08-04] MEDS: ACETAMINOPHEN 325 MG TABLET (FP) PO PRN (21:39)
[2016-08-04] MEDS: MAG HYDROX/AL HYDROX/SIMETH 30 ML UNIT-DOSE CUP PO PRN (23:28)
[2016-08-05] MEDS: metFORMIN HCL 500 MG TABLET (FP) PO SCH ×2 (06:12→16:39)
[2016-08-05] MEDS: GABAPENTIN 300 MG CAPSULE (FP) PO SCH ×3 (06:12→21:54)
[2016-08-05] MEDS: INSULIN SLIDING SCALE (NOVOLOG) 1 VIAL SQ SCH ×2 (06:13→16:40)
[2016-08-05] MEDS: BACITRACIN 0.9 GM PACKET TP SCH ×2 (09:58→21:54)
[2016-08-05] MEDS: amLODIPine BESYLATE 10 MG TABLET (FP) PO SCH (09:58)
[2016-08-05] MEDS: QUEtiapine FUMARATE 200 MG TABLET PO SCH ×2 (09:58→21:54)
[2016-08-05] MEDS: LISINOPRIL 10 MG TABLET (FP) PO SCH (09:58)
[2016-08-05] MEDS: ASPIRIN 81 MG CHEWABLE TABLETS PO SCH (09:58)
[2016-08-05] MEDS: BUDESONIDE/FORMETEROL FUMARATE 160/4.5 mcg INHALER IH SCH ×2 (09:58→21:57)
[2016-08-05] MEDS: PRENATAL VITAMINS W/ FOLIC ACID TABLET (FP) PO SCH (09:58)
[2016-08-05] MEDS: TRIAMCINOLONE ACET 0.1% CREAM 15 GM TUBE TP SCH ×2 (09:59→21:58)
[2016-08-05] MEDS: FLUTICASONE PROP 0.05% 16 GM NASAL SPRAY NS SCH ×2 (09:59→21:57)
[2016-08-05] MEDS: HYDROCORTISONE 2.5% TOPICAL CREAM 30 GM TUBE TP SCH ×2 (09:59→21:58)
[2016-08-05] MEDS: NICOTINE 21 MG/24 HOURS TOPICAL PATCH TD SCH (10:00)
[2016-08-05] MEDS ORDERED: INSULIN (NOVOLOG) ASPART 100 UNITS/ML 10ML VIAL ONE (16:40)
[2016-08-05] MEDS: THIAMINE HCL 100 MG TABLET (FP) PO SCH (21:54)
[2016-08-05] MEDS: traZODone HCL 100 MG TABLET (FP) PO SCH (21:54)
[2016-08-05] MEDS: ROSUVASTATIN CA 20 MG TABLET (FP) PO SCH (21:54)
[2016-08-05] MEDS: DOCUSATE SODIUM 100 MG CAPSULE (FP) PO SCH (21:55)
[2016-08-05] MEDS: guaiFENesin/D-METHORPHAN HB 10 ML UNIT-DOSE CUPS PO PRN (22:00)
[2016-08-05] MEDS: MAG HYDROX/AL HYDROX/SIMETH 30 ML UNIT-DOSE CUP PO PRN (23:10)
[2016-08-06] MEDS: GABAPENTIN 300 MG CAPSULE (FP) PO SCH ×3 (06:36→21:49)
[2016-08-06] MEDS: INSULIN SLIDING SCALE (NOVOLOG) 1 VIAL SQ SCH ×2 (06:36→16:36)
[2016-08-06] MEDS: metFORMIN HCL 500 MG TABLET (FP) PO SCH ×2 (06:36→16:35)
[2016-08-06] MEDS: ALBUTEROL SO4 6.7 GM HFA INHALER IH PRN (06:38)
[2016-08-06] MEDS: ASPIRIN 81 MG CHEWABLE TABLETS PO SCH (10:10)
[2016-08-06] MEDS: LISINOPRIL 10 MG TABLET (FP) PO SCH (10:10)
[2016-08-06] MEDS: TRIAMCINOLONE ACET 0.1% CREAM 15 GM TUBE TP SCH ×2 (10:10→21:51)
[2016-08-06] MEDS: QUEtiapine FUMARATE 200 MG TABLET PO SCH ×2 (10:10→21:48)
[2016-08-06] MEDS: amLODIPine BESYLATE 10 MG TABLET (FP) PO SCH (10:10)
[2016-08-06] MEDS: PRENATAL VITAMINS W/ FOLIC ACID TABLET (FP) PO SCH (10:10)
[2016-08-06] MEDS: BACITRACIN 0.9 GM PACKET TP SCH ×2 (10:10→21:49)
[2016-08-06] MEDS: HYDROCORTISONE 2.5% TOPICAL CREAM 30 GM TUBE TP SCH ×2 (10:11→21:51)
[2016-08-06] MEDS: BUDESONIDE/FORMETEROL FUMARATE 160/4.5 mcg INHALER IH SCH ×2 (10:11→21:50)
[2016-08-06] MEDS: FLUTICASONE PROP 0.05% 16 GM NASAL SPRAY NS SCH ×2 (10:11→21:49)
[2016-08-06] MEDS: NICOTINE 21 MG/24 HOURS TOPICAL PATCH TD SCH (10:12)
[2016-08-06] MEDS ORDERED: INSULIN (NOVOLOG) ASPART 100 UNITS/ML 10ML VIAL ONE (16:45)
[2016-08-06] MEDS: traZODone HCL 100 MG TABLET (FP) PO SCH (21:48)
[2016-08-06] MEDS: DOCUSATE SODIUM 100 MG CAPSULE (FP) PO SCH (21:48)
[2016-08-06] MEDS: THIAMINE HCL 100 MG TABLET (FP) PO SCH (21:48)
[2016-08-06] MEDS: ROSUVASTATIN CA 20 MG TABLET (FP) PO SCH (21:48)
[2016-08-07] MEDS: metFORMIN HCL 500 MG TABLET (FP) PO SCH ×2 (06:08→16:39)
[2016-08-07] MEDS: INSULIN SLIDING SCALE (NOVOLOG) 1 VIAL SQ SCH ×2 (06:08→16:37)
[2016-08-07] MEDS: GABAPENTIN 300 MG CAPSULE (FP) PO SCH ×3 (06:08→21:49)
[2016-08-07] MEDS: amLODIPine BESYLATE 10 MG TABLET (FP) PO SCH (10:30)
[2016-08-07] MEDS: PRENATAL VITAMINS W/ FOLIC ACID TABLET (FP) PO SCH (10:30)
[2016-08-07] MEDS: LISINOPRIL 10 MG TABLET (FP) PO SCH (10:30)
[2016-08-07] MEDS: ASPIRIN 81 MG CHEWABLE TABLETS PO SCH (10:30)
[2016-08-07] MEDS: BACITRACIN 0.9 GM PACKET TP SCH ×2 (10:30→21:49)
[2016-08-07] MEDS: QUEtiapine FUMARATE 200 MG TABLET PO SCH ×2 (10:31→21:49)
[2016-08-07] MEDS: TRIAMCINOLONE ACET 0.1% CREAM 15 GM TUBE TP SCH ×2 (10:32→21:51)
[2016-08-07] MEDS: BUDESONIDE/FORMETEROL FUMARATE 160/4.5 mcg INHALER IH SCH ×2 (10:32→21:52)
[2016-08-07] MEDS: HYDROCORTISONE 2.5% TOPICAL CREAM 30 GM TUBE TP SCH ×2 (10:32→21:51)
[2016-08-07] MEDS: NICOTINE 21 MG/24 HOURS TOPICAL PATCH TD SCH (10:32)
[2016-08-07] MEDS: FLUTICASONE PROP 0.05% 16 GM NASAL SPRAY NS SCH ×2 (10:32→21:50)
[2016-08-07] MEDS ORDERED: INSULIN (NOVOLOG) ASPART 100 UNITS/ML 10ML VIAL ONE (16:37)
[2016-08-07] MEDS: ROSUVASTATIN CA 20 MG TABLET (FP) PO SCH (21:49)
[2016-08-07] MEDS: DOCUSATE SODIUM 100 MG CAPSULE (FP) PO SCH (21:49)
[2016-08-07] MEDS: traZODone HCL 100 MG TABLET (FP) PO SCH (21:49)
[2016-08-07] MEDS: THIAMINE HCL 100 MG TABLET (FP) PO SCH (21:49)
[2016-08-08] MEDS: metFORMIN HCL 500 MG TABLET (FP) PO SCH ×2 (06:17→16:43)
[2016-08-08] MEDS: GABAPENTIN 300 MG CAPSULE (FP) PO SCH ×3 (06:17→21:38)
[2016-08-08] MEDS: ACETAMINOPHEN 325 MG TABLET (FP) PO PRN (06:19)
[2016-08-08] MEDS: INSULIN SLIDING SCALE (NOVOLOG) 1 VIAL SQ SCH ×2 (06:24→16:41)
[2016-08-08] MEDS: ASPIRIN 81 MG CHEWABLE TABLETS PO SCH (10:27)
[2016-08-08] MEDS: BUDESONIDE/FORMETEROL FUMARATE 160/4.5 mcg INHALER IH SCH ×2 (10:27→21:38)
[2016-08-08] MEDS: LISINOPRIL 10 MG TABLET (FP) PO SCH (10:27)
[2016-08-08] MEDS: QUEtiapine FUMARATE 200 MG TABLET PO SCH ×2 (10:28→21:38)
[2016-08-08] MEDS: amLODIPine BESYLATE 10 MG TABLET (FP) PO SCH (10:28)
[2016-08-08] MEDS: BACITRACIN 0.9 GM PACKET TP SCH ×2 (10:28→21:39)
[2016-08-08] MEDS: NICOTINE 21 MG/24 HOURS TOPICAL PATCH TD SCH (10:28)
[2016-08-08] MEDS: PRENATAL VITAMINS W/ FOLIC ACID TABLET (FP) PO SCH (10:28)
[2016-08-08] MEDS: FLUTICASONE PROP 0.05% 16 GM NASAL SPRAY NS SCH ×2 (10:28→21:40)
[2016-08-08] MEDS: HYDROCORTISONE 2.5% TOPICAL CREAM 30 GM TUBE TP SCH ×2 (10:29→21:40)
[2016-08-08] MEDS: TRIAMCINOLONE ACET 0.1% CREAM 15 GM TUBE TP SCH ×2 (10:29→21:41)
[2016-08-08] MEDS ORDERED: INSULIN (NOVOLOG) ASPART 100 UNITS/ML 10ML VIAL ONE (16:41)
[2016-08-08] MEDS: DOCUSATE SODIUM 100 MG CAPSULE (FP) PO SCH (21:38)
[2016-08-08] MEDS: ROSUVASTATIN CA 20 MG TABLET (FP) PO SCH (21:38)
[2016-08-08] MEDS: THIAMINE HCL 100 MG TABLET (FP) PO SCH (21:39)
[2016-08-08] MEDS: traZODone HCL 100 MG TABLET (FP) PO SCH (21:39)
[2016-08-09] MEDS: GABAPENTIN 300 MG CAPSULE (FP) PO SCH ×3 (06:21→21:47)
[2016-08-09] MEDS: metFORMIN HCL 500 MG TABLET (FP) PO SCH ×2 (06:21→16:51)
[2016-08-09] MEDS: INSULIN SLIDING SCALE (NOVOLOG) 1 VIAL SQ SCH ×2 (06:22→16:50)
[2016-08-09] MEDS: ACETAMINOPHEN 325 MG TABLET (FP) PO PRN (07:24)
[2016-08-09] MEDS: LISINOPRIL 10 MG TABLET (FP) PO SCH (10:38)
[2016-08-09] MEDS: ASPIRIN 81 MG CHEWABLE TABLETS PO SCH (10:38)
[2016-08-09] MEDS: BUDESONIDE/FORMETEROL FUMARATE 160/4.5 mcg INHALER IH SCH ×2 (10:38→21:46)
[2016-08-09] MEDS: PRENATAL VITAMINS W/ FOLIC ACID TABLET (FP) PO SCH (10:38)
[2016-08-09] MEDS: BACITRACIN 0.9 GM PACKET TP SCH ×2 (10:38→21:47)
[2016-08-09] MEDS: amLODIPine BESYLATE 10 MG TABLET (FP) PO SCH (10:38)
[2016-08-09] MEDS: QUEtiapine FUMARATE 200 MG TABLET PO SCH ×2 (10:38→21:47)
[2016-08-09] MEDS: FLUTICASONE PROP 0.05% 16 GM NASAL SPRAY NS SCH ×2 (10:38→21:46)
[2016-08-09] MEDS: TRIAMCINOLONE ACET 0.1% CREAM 15 GM TUBE TP SCH ×2 (10:39→21:49)
[2016-08-09] MEDS: NICOTINE 21 MG/24 HOURS TOPICAL PATCH TD SCH (10:39)
[2016-08-09] MEDS: HYDROCORTISONE 2.5% TOPICAL CREAM 30 GM TUBE TP SCH ×2 (10:39→21:47)
[2016-08-09] MEDS: IBUPROFEN 400 MG TABLET (FP) PO PRN (10:42)
[2016-08-09] MEDS: ALBUTEROL SO4 6.7 GM HFA INHALER IH PRN (11:55)
[2016-08-09] MEDS ORDERED: INSULIN (NOVOLOG) ASPART 100 UNITS/ML 10ML VIAL ONE (16:50)
[2016-08-09] MEDS: ROSUVASTATIN CA 20 MG TABLET (FP) PO SCH (21:47)
[2016-08-09] MEDS: traZODone HCL 100 MG TABLET (FP) PO SCH (21:47)
[2016-08-09] MEDS: DOCUSATE SODIUM 100 MG CAPSULE (FP) PO SCH (21:47)
[2016-08-09] MEDS: THIAMINE HCL 100 MG TABLET (FP) PO SCH (21:50)
[2016-08-10] MEDS: GABAPENTIN 300 MG CAPSULE (FP) PO SCH ×3 (06:13→21:42)
[2016-08-10] MEDS: metFORMIN HCL 500 MG TABLET (FP) PO SCH ×2 (06:13→16:47)
[2016-08-10] MEDS: IBUPROFEN 400 MG TABLET (FP) PO PRN ×3 (06:13→21:43)
[2016-08-10] MEDS: INSULIN SLIDING SCALE (NOVOLOG) 1 VIAL SQ SCH ×2 (06:14→16:59)
[2016-08-10] MEDS: FLUTICASONE PROP 0.05% 16 GM NASAL SPRAY NS SCH ×2 (10:23→21:42)
[2016-08-10] MEDS: TRIAMCINOLONE ACET 0.1% CREAM 15 GM TUBE TP SCH ×2 (10:23→21:42)
[2016-08-10] MEDS: BUDESONIDE/FORMETEROL FUMARATE 160/4.5 mcg INHALER IH SCH ×2 (10:23→21:42)
[2016-08-10] MEDS: NICOTINE 21 MG/24 HOURS TOPICAL PATCH TD SCH (10:24)
[2016-08-10] MEDS: ASPIRIN 81 MG CHEWABLE TABLETS PO SCH (10:24)
[2016-08-10] MEDS: LISINOPRIL 10 MG TABLET (FP) PO SCH (10:24)
[2016-08-10] MEDS: amLODIPine BESYLATE 10 MG TABLET (FP) PO SCH (10:24)
[2016-08-10] MEDS: BACITRACIN 0.9 GM PACKET TP SCH ×2 (10:24→21:44)
[2016-08-10] MEDS: PRENATAL VITAMINS W/ FOLIC ACID TABLET (FP) PO SCH (10:24)
[2016-08-10] MEDS: QUEtiapine FUMARATE 200 MG TABLET PO SCH ×2 (10:25→21:42)
[2016-08-10] MEDS: HYDROCORTISONE 2.5% TOPICAL CREAM 30 GM TUBE TP SCH ×2 (10:25→21:42)
--- NOTE | 2016-08-10 12:16 | PN ---
[facility] Progress Note (SOAP) Subjective: rt inquinal abscess 2 raised Objective: 08/10/16 12:14 Vital Signs Temperature 97.3 F L 08/10/16 06:43 Pulse Rate 101 H 08/10/16 06:43 Respiratory Rate 20 08/10/16 06:43 Blood Pressure 135/89 08/10/16 06:43 O2 Sat by Pulse Oximetry (%) Laboratory Tests 07/19/16 07/20/16 07/20/16 16:27 06:18 17:04 POC Glucometer 129 188 184 07/21/16 07/21/16 07/22/16 06:33 17:06 06:15 POC Glucometer 137 197 173 07/22/16 07/23/16 07/23/16 17:04 06:25 17:03 POC Glucometer 208 136 269 07/24/16 07/24/16 07/25/16 05:55 16:26 06:38 POC Glucometer 122 235 122 07/25/16 07/26/16 07/26/16 16:32 06:22 16:39 POC Glucometer 167 130 180 07/27/16 07/27/16 07/28/16 05:39 16:45 06:27 POC Glucometer 136 202 122 07/28/16 07/29/16 07/29/16 16:42 06:03 16:41 POC Glucometer 151 223 179 07/30/16 07/30/16 07/31/16 06:00 16:37 06:15 POC Glucometer 105 191 136 07/31/16 08/01/16 08/01/16 16:58 06:41 16:31 POC Glucometer 150 118 199 08/02/16 08/02/16 08/03/16 05:06 16:46 05:55 POC Glucometer 120 172 172 08/03/16 08/04/16 08/04/16 17:02 06:08 17:00 POC Glucometer 164 150 138 08/05/16 08/05/16 08/06/16 06:11 16:36 06:35 POC Glucometer 134 170 108 08/06/16 08/07/16 08/07/16 16:24 06:07 16:35 POC Glucometer 184 132 210 08/08/16 08/08/16 08/09/16 06:16 16:39 06:20 POC Glucometer 124 155 120 05/08/17 05/09/17 16:48 06:11 POC Glucometer 199 121 Laboratory Tests 07/19/16 07/20/16 07/20/16 16:27 06:18 17:04 POC Glucometer 129 188 184 07/21/16 07/21/16 07/22/16 06:33 17:06 06:15 POC Glucometer 137 197 173 07/22/16 07/23/16 07/23/16 17:04 06:25 17:03 POC Glucometer 208 136 269 07/24/16 07/24/16 07/25/16 05:55 16:26 06:38 POC Glucometer 122 235 122 07/25/16 07/26/16 07/26/16 16:32 06:22 16:39 POC Glucometer 167 130 180 07/27/16 07/27/16 07/28/16 05:39 16:45 06:27 POC Glucometer 136 202 122 07/28/16 07/29/16 07/29/16 16:42 06:03 16:41 POC Glucometer 151 223 179 07/30/16 07/30/16 07/31/16 06:00 16:37 06:15 POC Glucometer 105 191 136 07/31/16 08/01/16 08/01/16 16:58 06:41 16:31 POC Glucometer 150 118 199 08/02/16 08/02/16 08/03/16 05:06 16:46 05:55 POC Glucometer 120 172 172 08/03/16 08/04/16 08/04/16 17:02 06:08 17:00 POC Glucometer 164 150 138 08/05/16 08/05/16 08/06/16 06:11 16:36 06:35 POC Glucometer 134 170 108 08/06/16 08/07/16 08/07/16 16:24 06:07 16:35 POC Glucometer 184 132 210 08/08/16 08/08/16 08/09/16 06:16 16:39 06:20 POC Glucometer 124 155 120 08/09/16 08/10/16 16:48 06:11 POC Glucometer 199 121 raised paapules rt groin Assessment: 08/10/16 12:15 Plan: doxycycline 100mg bid motrin 400mg tid rpr cbc u/a basic met.
[2016-08-10] MEDS: ACETAMINOPHEN 325 MG TABLET (FP) PO PRN (16:48)
[2016-08-10] MEDS ORDERED: INSULIN (NOVOLOG) ASPART 100 UNITS/ML 10ML VIAL ONE (17:00)
[2016-08-10] MEDS: DOXYCYCLINE HYCLATE 100 MG TABLET PO SCH (18:04)
[2016-08-10] MEDS: traZODone HCL 100 MG TABLET (FP) PO SCH (21:42)
[2016-08-10] MEDS: ROSUVASTATIN CA 20 MG TABLET (FP) PO SCH (21:42)
[2016-08-10] MEDS: DOCUSATE SODIUM 100 MG CAPSULE (FP) PO SCH (21:42)
[2016-08-10] MEDS: THIAMINE HCL 100 MG TABLET (FP) PO SCH (21:42)
[2016-08-11] MEDS: MAG HYDROX/AL HYDROX/SIMETH 30 ML UNIT-DOSE CUP PO PRN (00:28)
[2016-08-11] MEDS: INSULIN SLIDING SCALE (NOVOLOG) 1 VIAL SQ SCH ×2 (06:08→17:29)
[2016-08-11] MEDS: metFORMIN HCL 500 MG TABLET (FP) PO SCH ×2 (06:08→17:25)
[2016-08-11] MEDS: GABAPENTIN 300 MG CAPSULE (FP) PO SCH ×3 (06:08→21:47)
[2016-08-11 09:57] LABS: BASOPHIL 0.6 % (0-2.0); EOSINOPHIL 2.6 % (0-4.5); MCH 30.4 pg (25.7-33.7); MCHC 32.3 g/dl (32.0-35.9); MEAN CELL VOLUME 94.3 fl (80-96); MEAN PLT VOLUME 8.1 fl (7.5-11.1); NEUTROPHILS 58.1 % (42.8-82.8); PLATELET COUNT 336 K/MM3 (134-434); RDW 14.3 % (11.9-15.9); WHITE BLOOD COUNT 8.5 K/mm3 (4.0-10.0)
[2016-08-11 10:22] LABS: CALCIUM 9.1 mg/dL (8.5-10.1); COCKROFT - GAULT 140.56; CREATININE 0.8 mg/dL (0.7-1.3)
[2016-08-11] MEDS: BUDESONIDE/FORMETEROL FUMARATE 160/4.5 mcg INHALER IH SCH ×2 (10:25→21:52)
[2016-08-11] MEDS: ASPIRIN 81 MG CHEWABLE TABLETS PO SCH (10:26)
[2016-08-11] MEDS: FLUTICASONE PROP 0.05% 16 GM NASAL SPRAY NS SCH ×2 (10:26→21:50)
[2016-08-11] MEDS: amLODIPine BESYLATE 10 MG TABLET (FP) PO SCH (10:26)
[2016-08-11] MEDS: HYDROCORTISONE 2.5% TOPICAL CREAM 30 GM TUBE TP SCH ×2 (10:26→21:50)
[2016-08-11] MEDS: PRENATAL VITAMINS W/ FOLIC ACID TABLET (FP) PO SCH (10:26)
[2016-08-11] MEDS: TRIAMCINOLONE ACET 0.1% CREAM 15 GM TUBE TP SCH ×2 (10:26→21:51)
[2016-08-11] MEDS: LISINOPRIL 10 MG TABLET (FP) PO SCH (10:26)
[2016-08-11] MEDS: BACITRACIN 0.9 GM PACKET TP SCH ×2 (10:26→21:51)
[2016-08-11] MEDS: QUEtiapine FUMARATE 200 MG TABLET PO SCH ×2 (10:26→21:48)
[2016-08-11] MEDS: DOXYCYCLINE HYCLATE 100 MG TABLET PO SCH ×2 (10:26→17:25)
[2016-08-11] MEDS: NICOTINE 21 MG/24 HOURS TOPICAL PATCH TD SCH (10:27)
[2016-08-11] MEDS: ACETAMINOPHEN 325 MG TABLET (FP) PO PRN (10:28)
[2016-08-11] MEDS ORDERED: INSULIN (NOVOLOG) ASPART 100 UNITS/ML 10ML VIAL ONE (17:28)
[2016-08-11] MEDS: traZODone HCL 100 MG TABLET (FP) PO SCH (21:47)
[2016-08-11] MEDS: THIAMINE HCL 100 MG TABLET (FP) PO SCH (21:47)
[2016-08-11] MEDS: DOCUSATE SODIUM 100 MG CAPSULE (FP) PO SCH (21:47)
[2016-08-11] MEDS: IBUPROFEN 400 MG TABLET (FP) PO PRN (21:48)
[2016-08-11] MEDS: ROSUVASTATIN CA 20 MG TABLET (FP) PO SCH (21:49)
[2016-08-12] MEDS: MAG HYDROX/AL HYDROX/SIMETH 30 ML UNIT-DOSE CUP PO PRN (01:09)
[2016-08-12] MEDS: metFORMIN HCL 500 MG TABLET (FP) PO SCH ×2 (06:08→16:39)
[2016-08-12] MEDS: GABAPENTIN 300 MG CAPSULE (FP) PO SCH ×3 (06:08→21:46)
[2016-08-12] MEDS: ACETAMINOPHEN 325 MG TABLET (FP) PO PRN (06:09)
[2016-08-12] MEDS: INSULIN SLIDING SCALE (NOVOLOG) 1 VIAL SQ SCH ×2 (06:10→16:41)
[2016-08-12] MEDS: BACITRACIN 0.9 GM PACKET TP SCH ×2 (10:52→21:46)
[2016-08-12] MEDS: FLUTICASONE PROP 0.05% 16 GM NASAL SPRAY NS SCH ×2 (10:52→21:47)
[2016-08-12] MEDS: BUDESONIDE/FORMETEROL FUMARATE 160/4.5 mcg INHALER IH SCH ×2 (10:52→21:45)
[2016-08-12] MEDS: QUEtiapine FUMARATE 200 MG TABLET PO SCH ×2 (10:53→21:46)
[2016-08-12] MEDS: amLODIPine BESYLATE 10 MG TABLET (FP) PO SCH (10:53)
[2016-08-12] MEDS: NICOTINE 21 MG/24 HOURS TOPICAL PATCH TD SCH (10:53)
[2016-08-12] MEDS: PRENATAL VITAMINS W/ FOLIC ACID TABLET (FP) PO SCH (10:53)
[2016-08-12] MEDS: ASPIRIN 81 MG CHEWABLE TABLETS PO SCH (10:53)
[2016-08-12] MEDS: DOXYCYCLINE HYCLATE 100 MG TABLET PO SCH ×2 (10:53→17:57)
[2016-08-12] MEDS: LISINOPRIL 10 MG TABLET (FP) PO SCH (10:53)
[2016-08-12] MEDS: HYDROCORTISONE 2.5% TOPICAL CREAM 30 GM TUBE TP SCH ×2 (10:54→21:47)
[2016-08-12] MEDS: TRIAMCINOLONE ACET 0.1% CREAM 15 GM TUBE TP SCH ×2 (10:54→21:47)
[2016-08-12] MEDS ORDERED: INSULIN (NOVOLOG) ASPART 100 UNITS/ML 10ML VIAL ONE (16:42)
[2016-08-12] MEDS: THIAMINE HCL 100 MG TABLET (FP) PO SCH (21:45)
[2016-08-12] MEDS: DOCUSATE SODIUM 100 MG CAPSULE (FP) PO SCH (21:45)
[2016-08-12] MEDS: traZODone HCL 100 MG TABLET (FP) PO SCH (21:46)
[2016-08-12] MEDS: ROSUVASTATIN CA 20 MG TABLET (FP) PO SCH (21:48)
--- NOTE | 2016-08-12 22:59 | PN ---
[facility] Progress Note Note: abscess x 2 right inguinal, raised recommend warm compress qid, avoid irritation to the area, keep area clean and dry encourage hand washing continue antibiotic
[2016-08-13] MEDS: GABAPENTIN 300 MG CAPSULE (FP) PO SCH ×3 (06:17→21:51)
[2016-08-13] MEDS: ACETAMINOPHEN 325 MG TABLET (FP) PO PRN ×2 (06:17→10:34)
[2016-08-13] MEDS: metFORMIN HCL 500 MG TABLET (FP) PO SCH ×3 (06:17→19:39)
[2016-08-13] MEDS: INSULIN SLIDING SCALE (NOVOLOG) 1 VIAL SQ SCH ×3 (07:18→19:36)
[2016-08-13] MEDS: LISINOPRIL 10 MG TABLET (FP) PO SCH (10:32)
[2016-08-13] MEDS: PRENATAL VITAMINS W/ FOLIC ACID TABLET (FP) PO SCH (10:32)
[2016-08-13] MEDS: BACITRACIN 0.9 GM PACKET TP SCH ×2 (10:32→21:51)
[2016-08-13] MEDS: amLODIPine BESYLATE 10 MG TABLET (FP) PO SCH (10:32)
[2016-08-13] MEDS: DOXYCYCLINE HYCLATE 100 MG TABLET PO SCH ×2 (10:32→18:52)
[2016-08-13] MEDS: ASPIRIN 81 MG CHEWABLE TABLETS PO SCH (10:32)
[2016-08-13] MEDS: QUEtiapine FUMARATE 200 MG TABLET PO SCH ×2 (10:32→21:52)
[2016-08-13] MEDS: BUDESONIDE/FORMETEROL FUMARATE 160/4.5 mcg INHALER IH SCH ×2 (10:32→21:52)
[2016-08-13] MEDS: TRIAMCINOLONE ACET 0.1% CREAM 15 GM TUBE TP SCH ×2 (10:33→21:53)
[2016-08-13] MEDS: HYDROCORTISONE 2.5% TOPICAL CREAM 30 GM TUBE TP SCH ×2 (10:33→21:53)
[2016-08-13] MEDS: FLUTICASONE PROP 0.05% 16 GM NASAL SPRAY NS SCH ×2 (10:34→21:53)
[2016-08-13] MEDS: NICOTINE 21 MG/24 HOURS TOPICAL PATCH TD SCH (10:34)
--- NOTE | 2016-08-13 11:32 | PN ---
[facility] Progress Note Note: abscess of right groin for 2 days,with tenderness,to er sj for evaluation
--- NOTE | 2016-08-13 11:40 | PN ---
S Progress Note Note: addendum spoke with dr ayala at [facility],to be transported by [facility]
[2016-08-13] MEDS ORDERED: INSULIN (NOVOLOG) ASPART 100 UNITS/ML 10ML VIAL ONE (19:38)
[2016-08-13] MEDS: traZODone HCL 100 MG TABLET (FP) PO SCH (21:51)
[2016-08-13] MEDS: ROSUVASTATIN CA 20 MG TABLET (FP) PO SCH (21:51)
[2016-08-13] MEDS: THIAMINE HCL 100 MG TABLET (FP) PO SCH (21:52)
[2016-08-13] MEDS: DOCUSATE SODIUM 100 MG CAPSULE (FP) PO SCH (21:52)
[2016-08-13] MEDS ORDERED: CLINDAMYCIN HCL 300 MG CAPSULE PO SCH ×2 (22:45)
[2016-08-13] MEDS: CLINDAMYCIN HCL 150 MG CAPSULE (FP) PO SCH (23:17)
[2016-08-14] MEDS: MAG HYDROX/AL HYDROX/SIMETH 30 ML UNIT-DOSE CUP PO PRN ×2 (02:05→14:17)
[2016-08-14] MEDS: metFORMIN HCL 500 MG TABLET (FP) PO SCH ×2 (06:35→16:40)
[2016-08-14] MEDS: CLINDAMYCIN HCL 150 MG CAPSULE (FP) PO SCH ×3 (06:35→21:41)
[2016-08-14] MEDS: GABAPENTIN 300 MG CAPSULE (FP) PO SCH ×3 (06:35→21:41)
[2016-08-14] MEDS: INSULIN SLIDING SCALE (NOVOLOG) 1 VIAL SQ SCH ×2 (06:36→16:41)
[2016-08-14] MEDS: PRENATAL VITAMINS W/ FOLIC ACID TABLET (FP) PO SCH (10:39)
[2016-08-14] MEDS: amLODIPine BESYLATE 10 MG TABLET (FP) PO SCH (10:40)
[2016-08-14] MEDS: ASPIRIN 81 MG CHEWABLE TABLETS PO SCH (10:40)
[2016-08-14] MEDS: LISINOPRIL 10 MG TABLET (FP) PO SCH (10:40)
[2016-08-14] MEDS: FLUTICASONE PROP 0.05% 16 GM NASAL SPRAY NS SCH ×2 (10:40→21:40)
[2016-08-14] MEDS: BACITRACIN 0.9 GM PACKET TP SCH ×2 (10:40→21:42)
[2016-08-14] MEDS: HYDROCORTISONE 2.5% TOPICAL CREAM 30 GM TUBE TP SCH ×2 (10:40→21:40)
[2016-08-14] MEDS: QUEtiapine FUMARATE 200 MG TABLET PO SCH ×2 (10:40→21:41)
[2016-08-14] MEDS: DOXYCYCLINE HYCLATE 100 MG TABLET PO SCH ×2 (10:40→17:19)
[2016-08-14] MEDS: BUDESONIDE/FORMETEROL FUMARATE 160/4.5 mcg INHALER IH SCH ×2 (10:40→21:40)
[2016-08-14] MEDS: IBUPROFEN 400 MG TABLET (FP) PO PRN ×2 (10:43→16:41)
[2016-08-14] MEDS: NICOTINE 21 MG/24 HOURS TOPICAL PATCH TD SCH (10:45)
[2016-08-14] MEDS: TRIAMCINOLONE ACET 0.1% CREAM 15 GM TUBE TP SCH ×2 (11:16→21:41)
[2016-08-14] MEDS: DOCUSATE SODIUM 100 MG CAPSULE (FP) PO SCH (21:41)
[2016-08-14] MEDS: traZODone HCL 100 MG TABLET (FP) PO SCH (21:41)
[2016-08-14] MEDS: ROSUVASTATIN CA 20 MG TABLET (FP) PO SCH (21:41)
[2016-08-14] MEDS: THIAMINE HCL 100 MG TABLET (FP) PO SCH (21:42)
[2016-08-14] MEDS: diphenhydrAMINE HCL 50 MG CAPSULE PO PRN (21:43)
[2016-08-14] MEDS: ACETAMINOPHEN 325 MG TABLET (FP) PO PRN (21:44)
[2016-08-15] MEDS: metFORMIN HCL 500 MG TABLET (FP) PO SCH ×2 (06:30→17:07)
[2016-08-15] MEDS: CLINDAMYCIN HCL 150 MG CAPSULE (FP) PO SCH ×3 (06:31→21:42)
[2016-08-15] MEDS: GABAPENTIN 300 MG CAPSULE (FP) PO SCH ×3 (06:31→21:42)
[2016-08-15] MEDS: ACETAMINOPHEN 325 MG TABLET (FP) PO PRN ×3 (06:32→17:08)
[2016-08-15] MEDS: INSULIN SLIDING SCALE (NOVOLOG) 1 VIAL SQ SCH ×2 (06:37→17:08)
[2016-08-15] MEDS: FLUTICASONE PROP 0.05% 16 GM NASAL SPRAY NS SCH ×2 (10:35→21:40)
[2016-08-15] MEDS: HYDROCORTISONE 2.5% TOPICAL CREAM 30 GM TUBE TP SCH ×2 (10:35→21:40)
[2016-08-15] MEDS: LISINOPRIL 10 MG TABLET (FP) PO SCH (10:36)
[2016-08-15] MEDS: DOXYCYCLINE HYCLATE 100 MG TABLET PO SCH ×2 (10:36→17:07)
[2016-08-15] MEDS: PRENATAL VITAMINS W/ FOLIC ACID TABLET (FP) PO SCH (10:36)
[2016-08-15] MEDS: QUEtiapine FUMARATE 200 MG TABLET PO SCH ×2 (10:36→21:42)
[2016-08-15] MEDS: BUDESONIDE/FORMETEROL FUMARATE 160/4.5 mcg INHALER IH SCH ×2 (10:36→21:40)
[2016-08-15] MEDS: amLODIPine BESYLATE 10 MG TABLET (FP) PO SCH (10:36)
[2016-08-15] MEDS: ASPIRIN 81 MG CHEWABLE TABLETS PO SCH (10:36)
[2016-08-15] MEDS: BACITRACIN 0.9 GM PACKET TP SCH ×2 (10:36→21:42)
[2016-08-15] MEDS: NICOTINE 21 MG/24 HOURS TOPICAL PATCH TD SCH (10:37)
[2016-08-15] MEDS: TRIAMCINOLONE ACET 0.1% CREAM 15 GM TUBE TP SCH ×2 (10:37→21:41)
[2016-08-15] MEDS: MAG HYDROX/AL HYDROX/SIMETH 30 ML UNIT-DOSE CUP PO PRN (14:23)
[2016-08-15] MEDS: ROSUVASTATIN CA 20 MG TABLET (FP) PO SCH (21:41)
[2016-08-15] MEDS: diphenhydrAMINE HCL 50 MG CAPSULE PO PRN (21:41)
[2016-08-15] MEDS: THIAMINE HCL 100 MG TABLET (FP) PO SCH (21:41)
[2016-08-15] MEDS: DOCUSATE SODIUM 100 MG CAPSULE (FP) PO SCH (21:42)
[2016-08-15] MEDS: traZODone HCL 100 MG TABLET (FP) PO SCH (21:42)
[2016-08-16] MEDS: ACETAMINOPHEN 325 MG TABLET (FP) PO PRN (05:58)
[2016-08-16] MEDS: CLINDAMYCIN HCL 150 MG CAPSULE (FP) PO SCH (05:58)
[2016-08-16] MEDS: GABAPENTIN 300 MG CAPSULE (FP) PO SCH (05:58)
[2016-08-16] MEDS: metFORMIN HCL 500 MG TABLET (FP) PO SCH (06:00)
[2016-08-16] MEDS: INSULIN SLIDING SCALE (NOVOLOG) 1 VIAL SQ SCH (06:00)
[2016-08-16 07:06] VITALS: BP 147/87; PULSE 102; TEMP 97.2
--- NOTE | 2016-08-16 09:25 | PN ---
Psychiatric Progress Note Vital Signs: Vital Signs Period Temp Pulse Resp BP Sys/Fleming Pulse Ox Last 24 Hr 97.2 F 102-103 16-18 142-147/82-87 Date of Session: 08/16/16 Chief Complaint:: discharge visit HPI: Patient has addressed alcohol, nicotine dependence comorbid schizoaffective disorder. ROS: WNL Current Medications: Active Medications Generic Name Dose Route Start Last Admin Trade Name Freq PRN Reason Stop Dose Admin Acetaminophen 650 mg 07/19/16 13:48 08/16/16 05:58 Tylenol - PO 650 mg Q4H PRN Administration FEVER OR PAIN Al Hydroxide/Mg Hydroxide 30 ml 07/19/16 13:48 08/15/16 14:23 Mylanta Oral Suspension - PO 30 ml Q6H PRN Administration DYSPEPSIA Albuterol Sulfate 2 puff 07/23/16 15:51 08/09/16 11:55 Ventolin Hfa Inhaler - IH 2 puff Q4H PRN Administration SHORT OF BREATH/WHEEZING Amlodipine Besylate 10 mg 07/20/16 10:00 08/15/16 10:36 Norvasc - PO 10 mg DAILY VENANCIO Administration Aspirin 81 mg 07/20/16 10:00 08/15/16 10:36 Asa - PO 81 mg DAILY VENANCIO Administration Bacitracin 0.9 gm 07/21/16 22:00 08/15/16 21:42 Bacitracin - TP 0.9 gm BID VENANCIO Administration Budesonide/Formoterol Fumarate 2 puff 07/19/16 22:00 08/15/16 21:40 Symbicort 160/4.5mcg - IH 2 puff BID VENANCIO Administration Clindamycin HCl 300 mg 08/13/16 23:15 08/16/16 05:58 Cleocin - PO 300 mg TID VENANCIO Administration Diphenhydramine HCl 50 mg 07/19/16 13:48 08/15/16 21:41 Benadryl - PO 50 mg HSMR1 PRN Administration FOR ITCHING Docusate Sodium 300 mg 08/03/16 22:00 08/15/16 21:42 Colace - PO 300 mg HS VENANCIO Administration Doxycycline Hyclate 100 mg 08/10/16 18:00 08/15/16 17:07 Vibratab - PO 08/17/16 17:59 100 mg BID@1000,1800 VENANCIO Administration Eucalyptus/Menthol/Phenol/Sorbitol 1 each 07/19/16 13:48 08/03/16 14:29 Cepastat Lozenge - MM 1 each Q4H PRN Administration SORE THROAT Fluticasone Propionate 1 spray 07/19/16 22:00 08/15/16 21:40 Flonase - NS 1 spray BID VENANCIO Administration Gabapentin 300 mg 07/19/16 15:45 08/16/16 05:58 Neurontin - PO 300 mg TID VENANCIO Administration Guaifenesin 10 ml 07/19/16 13:48 08/05/16 22:00 Robitussin Dm - PO 10 ml Q6H PRN Administration COUGH Hydrocortisone 1 applic 07/20/16 22:00 08/15/16 21:40 Anusol 2.5% Hc Cream - TP 1 applic BID VENANCIO Administration Hydroxyzine Pamoate 50 mg 07/19/16 13:48 Vistaril - PO Q4H PRN AGITATION Ibuprofen 400 mg 07/19/16 13:48 08/14/16 16:41 Motrin - PO 400 mg Q6H PRN Administration PAIN Insulin Aspart 1 vial 07/23/16 16:30 08/16/16 06:00 Novolog Vial Sliding Scale - SQ Not Given BIDAC [facility] Protocol Lisinopril 10 mg 07/20/16 10:00 08/15/16 10:36 Prinivil PO 10 mg DAILY VENANCIO Administration Loperamide HCl 4 mg 07/19/16 13:48 Imodium - PO Q6H PRN DIARRHEA Magnesium Hydroxide 30 ml 07/19/16 13:48 07/20/16 23:09 Milk Of Magnesia - PO 30 ml DAILY PRN Administration CONSTIPATION Metformin HCl 500 mg 07/19/16 16:30 08/16/16 06:00 Glucophage - PO 500 mg BIDAC VENANCIO Administration Nicotine 21 mg 07/19/16 15:45 08/15/16 10:37 Nicoderm Patch - TD 21 mg DAILY VENANCIO Administration Multivit/Folic Acid/Iron 1 tab 07/20/16 10:00 08/15/16 10:36 Vitamins (Sjr) - PO 1 tab DAILY VENANCIO Administration Pseudoephedrine/Triprolidine 1 combo 07/19/16 13:48 Actifed - PO TID PRN NASAL CONGESTION Quetiapine Fumarate 200 mg 07/29/16 22:00 08/15/16 21:42 Seroquel - PO 200 mg BID VENANCIO Administration Rosuvastatin Calcium 20 mg 07/19/16 22:00 08/15/16 21:41 Crestor - PO 20 mg HS VENANCIO Administration Thiamine HCl 100 mg 07/19/16 22:00 08/15/16 21:41 Vitamin B1 - PO 100 mg HS VENANCIO Administration Trazodone HCl 100 mg 07/19/16 22:00 08/15/16 21:42 Desyrel - PO 100 mg HS VENANCIO Administration Triamcinolone Acetonide 1 applic 07/26/16 22:00 08/15/16 21:41 Aristocort 0.1% Cream - TP 1 applic BID VENANCIO Administration Current Side Effect: No Lab tests ordered: No Lab tests reviewed: Yes Provider note:: Patient has compelted today his treatment an dmet his goals will continue to adadress his issues at [facility] outpatient [facility] treatment program. Patient focused on insight he gained in this treatment and ways to cope with stressors, utilization of support system has been discussed. Patient is stable for discharge. Total face to face time:: 15 Mental Status Exam - Mental Status Exam Alert and Oriented to: Time, Place, Person Cognitive Function: Good Patient Appearance: Well Groomed Mood: Hopeful Affect: Appropriate, Mood Congruent Patient Behavior: Appropriate, Cooperative Speech Pattern: Clear, Appropriate Voice Loudness: Normal Thought Process: Goal Oriented Thought Disorder: Not Present Hallucinations: Denies Suicidal Ideation: Denies Homicidal Ideation: Denies Insight/Judgement: Fair Sleep: Fair Appetite: Fair Muscle strength/Tone: Normal Gait/Station: Normal Psychiatric Treatment Plan - Problem List (2) Nicotine dependence Qualifiers: Nicotine product type: cigarettes Substance use status: in withdrawal Qualified Code(s): F17.213 - Nicotine dependence, cigarettes, with withdrawal (3) Schizoaffective disorder Qualifiers: Schizoaffective disorder type: depressive Qualified Code(s): F25.1 - Schizoaffective disorder, depressive type
[2016-08-16] MEDS: BUDESONIDE/FORMETEROL FUMARATE 160/4.5 mcg INHALER IH SCH (10:17)
[2016-08-16] MEDS: HYDROCORTISONE 2.5% TOPICAL CREAM 30 GM TUBE TP SCH (10:18)
[2016-08-16] MEDS: FLUTICASONE PROP 0.05% 16 GM NASAL SPRAY NS SCH (10:18)
[2016-08-16] MEDS: amLODIPine BESYLATE 10 MG TABLET (FP) PO SCH (10:19)
[2016-08-16] MEDS: LISINOPRIL 10 MG TABLET (FP) PO SCH (10:19)
[2016-08-16] MEDS: PRENATAL VITAMINS W/ FOLIC ACID TABLET (FP) PO SCH (10:19)
[2016-08-16] MEDS: ASPIRIN 81 MG CHEWABLE TABLETS PO SCH (10:19)
[2016-08-16] MEDS: QUEtiapine FUMARATE 200 MG TABLET PO SCH (10:19)
[2016-08-16] MEDS: DOXYCYCLINE HYCLATE 100 MG TABLET PO SCH (10:19)
[2016-08-16] MEDS: TRIAMCINOLONE ACET 0.1% CREAM 15 GM TUBE TP SCH (10:19)
[2016-08-16] MEDS: NICOTINE 21 MG/24 HOURS TOPICAL PATCH TD SCH (10:21)
[2016-08-16] MEDS: BACITRACIN 0.9 GM PACKET TP SCH (10:25)
== END 2016-08-16 11:15 | disposition home or self-care (01) | DRG 772 ==
LOC: YASAS 08:19 → Y5N 14:05
PROVIDERS: ADMIT Psychiatry & Neurology Psychiatry; ATTEND Psychiatry & Neurology Psychiatry
PROC: HZ42ZZZ Group Counseling for Substance Abuse Treatment, Cognitive-Behavioral (ICD-10-PCS; principal; 2016-08-16)
DX: F10.230 Alcohol dependence with withdrawal, uncomplicated (principal); F17.213 Nicotine dependence, cigarettes, with withdrawal; F25.1 Schizoaffective disorder, depressive type; I10 Essential (primary) hypertension; E11.9 Type 2 diabetes mellitus without complications; E66.09 Other obesity due to excess calories; Z68.34 Body mass index [BMI] 34.0-34.9, adult; Z96.89 Presence of other specified functional implants; Z97.0 Presence of artificial eye
CPT/HCPCS: 36415; 80048; 85025; 86593

== ENCOUNTER 2016-08-13 13:41 | Emergency (ER) | payer OTHER ==
[2016-08-13 13:56] VITALS: BMI 36.6
--- NOTE | 2016-08-13 15:27 | PDOC ---
History of Present Illness - General History Source: Patient Exam Limitations: No Limitations - History of Present Illness Initial Comments: 08/13/16 15:34 The patient is a 56 year old male, with a significant past medical history of obesity, asthma, HTN, HLD, DM, bipolar disorder, schizophrenia, and seizures, who presents to the emergency department sent by rehab facility for evaluation of right supra pubic abscess that has been growing for several days. As per records, the patient presented to the ED with a similar abscess localized to the right groin, right buttock, and left inner thigh approximately 3 weeks ago, during which it was drained. At the time, the patient reported he was given Bactrim by his rehab doctor, with minimal relief. Today, the patient reports pain to the right groin secondary to abscess. He reports his pain is exacerbated when walking. Patient reports a subjective fever, but denies any chills, cough, headache, or dizziness. The patient denies any dysuria, hematuria , frequency, or urgency. The patient denies any abdominal pain, nausea, vomiting , diarrhea, or constipation. Allergies: None reported. Past Surgical History: Appendectomy, Right prosthetic eye(congenital retinopathy ) Social History: ETOH abuse. Current everyday smoker(3 cigarettes per day). Denies drug use. <Tamara Soto - Last Filed: 08/13/16 15:38> - General History Source: Patient <Lesia Ellsworth - Last Filed: 08/13/16 17:18> - General Chief Complaint: Abscess Boil Stated Complaint: ABSCESS Time Seen by Provider: 08/13/16 14:38 Past History <Tamara Soto - Last Filed: 08/13/16 15:38> - Past Medical History Anemia: No Asthma: Yes Cancer: No Cardiac Disorders: No CVA: No COPD: No CHF: No Dementia: No Diabetes: Yes GI Disorders: No Disorders: No HTN: Yes Hypercholesterolemia: Yes Kidney Stones: No Liver Disease: No Suicide Attempt (Hx): No Seizures: Yes Thyroid Disease: No - Surgical History Abdominal Surgery: No Appendectomy: Yes (at age 13) Cardiac Surgery: No Cholecystectomy: No Lung Surgery: No Neurologic Surgery: No Orthopedic Surgery: Yes - Reproductive History Testicular Surgery: No - Psycho/Social/Smoking Cessation Hx Anxiety: No Suicidal Ideation: No Smoking History: Current every day smoker Have you smoked in the past 12 months: Yes Number of Cigarettes Smoked Daily: 3 Cigars Per Day: 0 Information on smoking cessation initiated: No 'Breaking Loose' booklet given: 07/13/16 Hx Alcohol Use: Yes Drug/Substance Use Hx: No Substance Use Type: Alcohol Hx Substance Use Treatment: Yes <Lesia Ellsworth - Last Filed: 08/13/16 17:18> - Past Medical History Allergies/Adverse Reactions: Allergies Allergy/AdvReac Type Severity Reaction Status Date / Time No Known Drug Allergies Allergy Verified 07/19/16 13:23 Home Medications: Ambulatory Orders Trazodone HCl 100 mg PO HS #30 tablet 08/06/15 Quetiapine Fumarate [Seroquel] 200 tab PO BID #60 tablet 08/11/15 Fluticasone Prop 0.05% Nasal [Flonase -] 1 spray NS BID #1 spray 09/02/15 Folic Acid - 1 mg PO DAILY 07/13/16 Triamcinolone Acet 0.1% Cream [Aristocort] 80 gm TP DAILY 07/13/16 Gabapentin 300 mg PO TID #90 capsule 07/14/16 Aspirin [ASA -] 81 mg PO DAILY #30 tab.chew 07/18/16 Budesonide/Formeterol Fumarate [SYMBICORT 160/4.5mcg -] 1 inh PO BID #1 inhaler 07/18/16 Clindamycin [Cleocin -] 300 mg PO Q6HPO #40 capsule 07/18/16 Docusate Sodium [Colace -] 100 mg PO TID #30 tab 07/18/16 Hydrocortisone [Preparation H] 1 applic TP QID PRN #1 tube 07/18/16 Ibuprofen 400 mg PO QID PRN #40 tablet 07/18/16 Lisinopril [Prinivil] 10 mg PO DAILY #30 tab 07/18/16 Rosuvastatin Calcium [Crestor] 20 mg PO HS #30 tab 07/18/16 Metformin HCl [Glucophage -] 500 mg PO BID 07/19/16 Albuterol Sulfate Inhaler - [Ventolin HFA Inhaler -] 2 puff IH Q4H PRN #1 inhaler 08/02/16 Amlodipine Besylate [Norvasc -] 10 mg PO DAILY #30 tablet 08/02/16 Aspirin [ASA -] 81 mg PO DAILY #30 tab.chew 08/02/16 Budesonide/Formeterol Fumarate [SYMBICORT 160/4.5mcg -] 2 puff IH BID #1 inhaler 08/02/16 Fluticasone Prop 0.05% Nasal [Flonase -] 1 spray NS BID #1 spray 08/02/16 Hydrocortisone 2.5% Topical Cr [Anusol-Hc -] 1 applic TP BID #1 tube 08/02/16 Lisinopril [Prinivil] 10 mg PO DAILY #30 tablet 08/02/16 Metformin HCl [Glucophage -] 500 mg PO BIDAC #60 tablet 08/02/16 Rosuvastatin [Crestor -] 20 mg PO HS #30 tablet 08/02/16 Triamcinolone 0.1% Cream [Aristocort 0.1% Cream -] 1 applic TP BID #1 applic 04/20 Clindamycin [Cleocin -] 300 mg PO TID #21 capsule 08/13/16 Review of Systems - Review of Systems Able to Perform ROS?: Yes Comments:: 08/13/16 15:36 GENERAL/CONSTITUTIONAL: Yes: +fever. No chills. No weakness. HEAD, EYES, EARS, NOSE AND THROAT: No change in vision. No ear pain or discharge. No sore throat. CARDIOVASCULAR: No chest pain or shortness of breath. RESPIRATORY: No cough, wheezing, or hemoptysis. GASTROINTESTINAL: No nausea, vomiting, diarrhea or constipation. GENITOURINARY: Yes: +Right suprapubic abscess. No dysuria, frequency, or change in urination. MUSCULOSKELETAL: No joint or muscle swelling or pain. No neck or back pain. SKIN: No rash NEUROLOGIC: No headache, vertigo, loss of consciousness, or change in strength/ sensation. ENDOCRINE: No increased thirst. No abnormal weight change. HEMATOLOGIC/LYMPHATIC: No anemia, easy bleeding, or history of blood clots. ALLERGIC/IMMUNOLOGIC: No hives or skin allergy. <Tamara Soto - Last Filed: 08/13/16 15:38> *Physical Exam - Vital Signs Last Vital Signs Temp Pulse Resp BP Pulse Ox 97.3 F L 87 20 157/87 93 L 08/13/16 13:54 08/13/16 13:54 08/13/16 13:54 08/13/16 13:54 08/13/16 13:54 - Physical Exam Comments: 08/13/16 15:36 GENERAL: Awake, alert, and fully oriented, in no acute distress HEAD: No signs of trauma EYES: PERRLA, EOMI, sclera anicteric, conjunctiva clear ENT: Auricles normal inspection, hearing grossly normal, nares patent. Moist mucosa NECK: Normal ROM, supple, no lymphadenopathy, JVD, or masses LUNGS: Breath sounds equal, clear to auscultation bilaterally. No wheezes, and no crackles HEART: Regular rate and rhythm, normal S1 and S2, no murmurs, rubs or gallops ABDOMEN: Obese. Soft, nontender, normoactive bowel sounds. No guarding, no rebound. No masses EXTREMITIES: Normal range of motion, no edema. No clubbing or cyanosis. No cords, erythema, or tenderness. DP/PT pulses 2+ and symmetric. GENITOURINARY: Right suprapubic region with small folliculitis. Palpable indurated area measuring 0.5 x 1 cm, with small fluctuance, but no surrounding erythema or warmth. No scrotal edema or crepitus. Testicles are nontender. NEUROLOGICAL: Moves all extremities. Normal speech, normal gait SKIN: Warm, Dry, normal turgor. <Tamara Soto - Last Filed: 08/13/16 15:38> - Vital Signs Last Vital Signs Temp Pulse Resp BP Pulse Ox 97.3 F L 87 20 157/87 93 L 08/13/16 13:54 08/13/16 13:54 08/13/16 13:54 08/13/16 13:54 08/13/16 13:54 <Lesia Ellsworth - Last Filed: 08/13/16 17:18> Procedures - Incision and Drainage I&D Site: Right: Groin Betadine cleansed: Yes Anesthesia: 1% Lidocaine Volume(ml): 1 (serosanginous fluid) Blade Size: 11 Plain Packing: No Complications: none Dressing: Yes <Lesia Ellsworth - Last Filed: 08/13/16 17:18> Medical Decision Making - Medical Decision Making 08/13/16 15:24 56 yo male DM HTN here wtih groin abscess. pt is in rehab facility, states has been growing for few days where he is for etoh withdrawal , detox. pt has had abscess recently which was drained at [facility]. no f/c no n/v. no other complaints. on exam lungs CTAB, heart RRR no m/r/g. abd soft obese nontender. right suprapubic region with small folliculitis, small indurated area measuring 0.5 x 1 cm. small fluctuance. no scrotal erythema no crepitus. no erythema. MDM folliculitis vs. abcess. plan bedside soft tissue us r/o fluid collection, abx bactrim DS, outpt surgery followup. recommend hygein, warm soaks and abx. 08/13/16 17:14 I &D. small serosanginous fluid, tolerated well. dressing placed. dc on clindamycin <Lesia Ellsworth - Last Filed: 08/13/16 17:18> *DC/Admit/Observation/Transfer - Attestations Scribe Attestion: 08/13/16 15:37 Documentation prepared by Tamara Soto, acting as medical instructor for Lesia Ellsworth MD. <Tamara Soto - Last Filed: 08/13/16 15:38> - Discharge Dispostion Admit: No <Lesia Ellsworth - Last Filed: 08/13/16 17:18> Diagnosis at time of Disposition: Folliculitis, Abscess - Discharge Dispostion Disposition: HOME Condition at time of disposition: Good - Prescriptions Prescriptions: Clindamycin [Cleocin -] 300 mg PO TID #21 capsule - Patient Instructions Printed Discharge Instructions: DI for Incision and Drainage of a Skin Abscess Additional Instructions: take clindamycin 300 mg three times daily x 7 days. you need to keep good hygein , shower twice daily. return for fevers, worsening redness or any concerns
[2016-08-13] MEDS ORDERED: IBUPROFEN 600 MG TABLET (FP) PO ONE ×2 (15:30→15:47)
[2016-08-13] MEDS ORDERED: CLINDAMYCIN HCL 150 MG CAPSULE (FP) PO ONE (15:31)
[2016-08-13] MEDS ORDERED: CLINDAMYCIN HCL 150 MG CAPSULE (FP) ONE (15:46)
[2016-08-13 18:22] VITALS: BP 149/96; PULSE 76; TEMP 97.8
== END 2016-08-13 18:00 | disposition home or self-care (01) ==
LOC: JER 13:41
PROC: 0H99XZZ Drainage of Perineum Skin, External Approach (ICD-10-PCS; principal; 2016-08-13)
DX: L02.214 Cutaneous abscess of groin (principal); L73.8 Other specified follicular disorders; E11.9 Type 2 diabetes mellitus without complications; Z79.84 Long term (current) use of oral hypoglycemic drugs; I10 Essential (primary) hypertension; E78.00 Pure hypercholesterolemia, unspecified; J45.909 Unspecified asthma, uncomplicated; F31.9 Bipolar disorder, unspecified; G40.909 Epilepsy, unspecified, not intractable, without status epilepticus; F10.20 Alcohol dependence, uncomplicated; F20.9 Schizophrenia, unspecified
CPT/HCPCS: 10060; 99282-25